=== PATIENT | female | born 1980 | race Caucasian/White ===

== ENCOUNTER 2016-10-27 08:57 | Emergency (ER) | payer MEDICARE ==
[~2016-10-27 08:57] MED LIST: ZYPR10TA9 PO; ZYPR15TA12 PO
[2016-10-27 09:36] VITALS: BP 123/93; PULSE 93; RESP 20; TEMP 97.5; O2SAT 99
[2016-10-27 10:45] LABS: AUTOMATED NEUTROPHIL # 10.1 TH/MM3 (1.8-7.7); BASOPHIL # 0.1 TH/MM3 (0-0.2); BASOPHIL % 0.4 % (0.0-2.0); EOSINOPHIL # 0.2 TH/MM3 (0-0.4); EOSINOPHIL % 1.4 % (0.0-4.0); HEMATOCRIT 41.5 % (35.0-46.0); HEMO FLAGS DIFF FINAL; LYMPH % 16.9 % (9.0-44.0); LYMPHOCYTE # 2.4 TH/MM3 (1.0-4.8); MEAN CELL VOLUME 90.2 FL (80.0-100.0); MEAN CORPUSCULAR HGB CONC 33.3 % (32.0-36.0); MONO % 8.7 % (0.0-8.0); NEUT % 72.6 % (16.0-70.0); PLATELET COUNT 359 TH/MM3 (150-450); RED CELL DISTRIBUTION WIDTH 13.4 % (11.6-17.2); WHITE BLOOD COUNT 13.9 TH/MM3 (4.0-11.0)
[2016-10-27 11:07] LABS: ALT (GPT) 22 U/L (10-53); ANION GAP 6 MEQ/L (5-15); AST (GOT) 16 U/L (15-37); BICARBONATE 28.3 MEQ/L (21.0-32.0); BLOOD UREA NITROGEN 24 MG/DL (7-18); CHLORIDE 108 MEQ/L (98-107); GLOMERULAR FILTRATION RATE 77 ML/MIN (>89); POTASSIUM 3.7 MEQ/L (3.5-5.1); SODIUM (NA) 142 MEQ/L (136-145)
[2016-10-27 11:08] LABS: ALKALINE PHOSPHATASE 54 U/L (45-117); TOTAL BILIRUBIN ADULT 0.8 MG/DL (0.2-1.0)
--- NOTE | 2016-10-27 11:09 | PD ---
HPI Chief Complaint: Psychiatric Symptoms Time Seen by Provider: 10:30 Travel History International Travel<30 days: No Contact w/Intl Traveler<30days: No Traveled to known affect area: No History of Present Illness HPI 36-year-old female presents the emergency department via police and EMS under the [place] act. Patient has history of schizophrenia and has been off her meds for quite some time. She was found on a random porch and the local neighborhood. Patient is obviously schizophrenic at this time. There is no obvious signs of trauma. Patient has no complaints of pain. She has no known drug allergies. PFSH Past Medical History Medical History: Unable to Obtain Autoimmune Disease: No Anxiety: No Depression: No Cancer: No Cardiovascular Problems: No Endocrine: No Genitourinary: No Immune Disorder: No Musculoskeletal: No Neurologic: No Psychiatric: Yes Reproductive: No Respiratory: No Schizophrenia: Yes ?: Unknown LMP: UNABLE TO OBTAIN : 3 Para: 1 : 1 Past Surgical History Surgical History: Unable to Obtain Section: Yes Gynecologic Surgery: Yes Social History Alcohol Use: No (UNABLE TO OBTAIN) Tobacco Use: Yes (UNABLE TO OBTAIN) Substance Use: No (UNABLE TO OBTAIN) Allergies-Medications (Allergen,Severity, Reaction): Coded Allergies: No Known Allergies (Verified , 10/27/16) Reported Meds & Prescriptions Reported Meds & Active Scripts Active Active Prescriptions or Reported Medications Unobtainable Review of Systems ROS Limitations: Psychotic Except as stated in HPI: all other systems reviewed are Neg General / Constitutional: No: Fever Eyes: No: Visual changes HENT: No: Headaches Cardiovascular: No: Chest Pain or Discomfort Respiratory: No: Shortness of Breath Gastrointestinal: No: Abdominal Pain Genitourinary: No: Dysuria Musculoskeletal: No: Pain Skin: No Rash Neurologic: No: Weakness Psychiatric: No: Depression Endocrine: No: Polydipsia Hematologic/Lymphatic: No: Easy Bruising Physical Exam Exam Limitations: Psychotic Narrative GENERAL: Patient appears in no obvious distress. She is speaking insensible sentences. SKIN: Warm and dry. Color. Normal turgor. No obvious signs of trauma. HEAD: Atraumatic. Normocephalic. EYES: Pupils equal and round. No scleral icterus. No injection or drainage. ENT: No nasal bleeding or discharge. Mucous membranes pink and moist. Pharynx is clear. NECK: Trachea midline. Supple CARDIOVASCULAR: Regular rate and rhythm. RESPIRATORY: No accessory muscle use. MUSCULOSKELETAL: Extremities without clubbing, cyanosis, or edema. No obvious deformities. NEUROLOGICAL: Awake and alert. No obvious cranial nerve deficits. Motor grossly within normal limits. Five out of 5 muscle strength in the arms and legs. Normal speech. PSYCHIATRIC: Patient appears psychotic, but is redirectable and cooperative at time of exam. Data Data Last Documented VS Vital Signs Date Time Temp Pulse Resp B/P Pulse Ox O2 Delivery O2 Flow Rate FiO2 10/27/16 09:36 97.5 93 20 123/93 99 Orders Complete Blood Count With Diff (10/27/16 10:12) Comprehensive Metabolic Panel (10/27/16 10:12) Urinalysis - C+S If Indicated (10/27/16 10:12) Ed Urine Pregnancytest Poc (10/27/16 10:12) Psych Screen (10/27/16 10:12) Drug Screen, Random Urine (10/27/16 10:12) Alcohol (Ethanol) (10/27/16 10:12) Labs Laboratory Tests Test 10/27/16 00:25 White Blood Count 13.9 TH/MM3 Red Blood Count 4.60 MIL/MM3 Hemoglobin 13.8 GM/DL Hematocrit 41.5 % Mean Corpuscular Volume 90.2 FL Mean Corpuscular Hemoglobin 30.0 PG Mean Corpuscular Hemoglobin 33.3 % Concent Red Cell Distribution Width 13.4 % Platelet Count 359 TH/MM3 Mean Platelet Volume 7.5 FL Neutrophils (%) (Auto) 72.6 % Lymphocytes (%) (Auto) 16.9 % Monocytes (%) (Auto) 8.7 % Eosinophils (%) (Auto) 1.4 % Basophils (%) (Auto) 0.4 % Neutrophils # (Auto) 10.1 TH/MM3 Lymphocytes # (Auto) 2.4 TH/MM3 Monocytes # (Auto) 1.2 TH/MM3 Eosinophils # (Auto) 0.2 TH/MM3 Basophils # (Auto) 0.1 TH/MM3 CBC Comment DIFF FINAL Differential Comment MDM Medical Decision Making Medical Screen Exam Complete: Yes Emergency Medical Condition: Yes Differential Diagnosis [place] act. Mood disorder. Psychosis. Narrative Course Patient appears medically stable at time of exam. Ordered per psychiatric protocol including CBC, CMP, urinalysis, urine drug screen, serum alcohol level, and urine test. Patient is medically cleared for psychiatric evaluation. Diagnosis Primary Impression: Medical clearance for psychiatric admission Additional Impression: Psychosis Qualified Code: F29 - Psychosis, unspecified psychosis type Scripts Unable to Obtain Active Prescriptions or Reported Meds Condition: Jonah Aranda Oct 27, 2016 11:09
[2016-10-27 13:44] VITALS: BP 119/96; PULSE 81; RESP 18; TEMP 98.1; O2SAT 97
[2016-10-27 18:21] VITALS: BP 115/61; PULSE 71; RESP 18; O2SAT 97
[2016-10-27 22:00] VITALS: RESP 18
[2016-10-28 02:00] VITALS: RESP 18
[2016-10-28 06:00] VITALS: BP 141/85; PULSE 107; RESP 18; TEMP 97.9; O2SAT 97
== END 2016-10-28 09:58 ==
LOC: NEPD 08:57 → NEPJ 10-28 09:58
DX: F29 Unspecified psychosis not due to a substance or known physiological condition (principal); F20.9 Schizophrenia, unspecified
CPT/HCPCS: 80053; 80307; 85025; 99284

== ENCOUNTER 2016-12-24 17:30 | Inpatient (IN) | payer MEDICARE, OTHER ==
[~2016-12-24] VITALS: Ht 157.5 cm; Wt 58.7 kg
[2016-12-24 17:34] VITALS: BP 124/72; PULSE 68; RESP 20; TEMP 98.1; O2SAT 99
[2016-12-24 18:41] LABS: AUTOMATED NEUTROPHIL # 4.5 TH/MM3 (1.8-7.7); BASOPHIL # 0.1 TH/MM3 (0-0.2); BASOPHIL % 0.8 % (0.0-2.0); EOSINOPHIL # 0.3 TH/MM3 (0-0.4); EOSINOPHIL % 4.2 % (0.0-4.0); HEMATOCRIT 37.2 % (35.0-46.0); HEMO FLAGS DIFF FINAL; LYMPH % 29.6 % (9.0-44.0); LYMPHOCYTE # 2.4 TH/MM3 (1.0-4.8); MEAN CELL VOLUME 93.3 FL (80.0-100.0); MEAN CORPUSCULAR HEMOGLOBIN 32.7 PG (27.0-34.0); MEAN CORPUSCULAR HGB CONC 35.1 % (32.0-36.0); MONO % 10.2 % (0.0-8.0); NEUT % 55.2 % (16.0-70.0); PLATELET COUNT 297 TH/MM3 (150-450); RED BLOOD COUNT 3.99 MIL/MM3 (4.00-5.30); RED CELL DISTRIBUTION WIDTH 14.2 % (11.6-17.2); WHITE BLOOD COUNT 8.2 TH/MM3 (4.0-11.0)
[2016-12-24 18:56] LABS: ALT (GPT) 14 U/L (10-53); ANION GAP 6 MEQ/L (5-15); AST (GOT) 8 U/L (15-37); BICARBONATE 25.6 MEQ/L (21.0-32.0); BLOOD UREA NITROGEN 15 MG/DL (7-18); CHLORIDE 107 MEQ/L (98-107); GLOMERULAR FILTRATION RATE 81 ML/MIN (>89); POTASSIUM 3.8 MEQ/L (3.5-5.1); SODIUM (NA) 139 MEQ/L (136-145)
[2016-12-24 18:59] LABS: ACETAMINOPHEN LESS THAN 2.0 MCG/ML (10.0-30.0); ALKALINE PHOSPHATASE 44 U/L (45-117); TOTAL BILIRUBIN ADULT 0.3 MG/DL (0.2-1.0)
--- NOTE | 2016-12-24 19:00 | PD ---
HPI Chief Complaint: Psychiatric Symptoms Time Seen by Provider: 18:57 Travel History International Travel<30 days: No Contact w/Intl Traveler<30days: No Traveled to known affect area: No History of Present Illness HPI 36-year-old female that presents to the ED for evaluation of psychiatric illness. Patient was [place] by law enforcement secondary to delusions and hallucinations. Patient denies any of these. No suicidal ideation. History is limited as patient would not really collaborate the story. Per patient she is here to get sleeping pills to help her sleep. She has no medical complaints. She says that she takes no medications. PFSH Past Medical History Autoimmune Disease: No Anxiety: No Depression: No Cancer: No Cardiovascular Problems: No Endocrine: No Genitourinary: No Immune Disorder: No Musculoskeletal: No Neurologic: No Psychiatric: Yes Reproductive: No Respiratory: No Schizophrenia: Yes ?: Not : 3 Para: 1 : 1 Past Surgical History Section: Yes Gynecologic Surgery: Yes Social History Alcohol Use: No (UNABLE TO OBTAIN) Tobacco Use: Yes (UNABLE TO OBTAIN) Substance Use: No Allergies-Medications (Allergen,Severity, Reaction): Coded Allergies: No Known Allergies (Verified , 10/27/16) Reported Meds & Prescriptions Reported Meds & Active Scripts Active Active Prescriptions or Reported Medications Unobtainable Review of Systems ROS Limitations: Poor Historian Except as stated in HPI: all other systems reviewed are Neg Physical Exam Exam Limitations: Poor Historian Narrative GENERAL: SKIN: Warm and dry. HEAD: Atraumatic. Normocephalic. EYES: Pupils equal and round. No scleral icterus. No injection or drainage. ENT: No nasal bleeding or discharge. Mucous membranes pink and moist. NECK: Trachea midline. No JVD. CARDIOVASCULAR: Regular rate and rhythm. RESPIRATORY: No accessory muscle use. Clear to auscultation. Breath sounds equal bilaterally. GASTROINTESTINAL: Abdomen soft, non-tender, nondistended. Hepatic and splenic margins not palpable. MUSCULOSKELETAL: Extremities without clubbing, cyanosis, or edema. No obvious deformities. Full range of motion of the upper and lower extremities bilaterally. 2+ pulses bilaterally. NEUROLOGICAL: Awake and alert. No obvious cranial nerve deficits. Motor grossly within normal limits. Five out of 5 muscle strength in the arms and legs. Normal speech. PSYCHIATRIC: Appropriate mood and affect; insight and judgment normal. Data Data Last Documented VS Vital Signs Date Time Temp Pulse Resp B/P Pulse Ox O2 Delivery O2 Flow Rate FiO2 12/24/16 17:34 98.1 68 20 124/72 99 Orders Complete Blood Count With Diff (12/24/16 17:41) Comprehensive Metabolic Panel (12/24/16 17:41) Psych Screen (12/24/16 17:41) Drug Screen, Random Urine (12/24/16 17:41) Alcohol (Ethanol) (12/24/16 17:41) Salicylates (Aspirin) (12/24/16 17:41) Tylenol (Acetaminophen) (12/24/16 17:41) Labs Laboratory Tests Test 12/24/16 12/24/16 17:50 17:51 White Blood Count 8.2 TH/MM3 Red Blood Count 3.99 MIL/MM3 Hemoglobin 13.0 GM/DL Hematocrit 37.2 % Mean Corpuscular Volume 93.3 FL Mean Corpuscular Hemoglobin 32.7 PG Mean Corpuscular Hemoglobin 35.1 % Concent Red Cell Distribution Width 14.2 % Platelet Count 297 TH/MM3 Mean Platelet Volume 7.3 FL Neutrophils (%) (Auto) 55.2 % Lymphocytes (%) (Auto) 29.6 % Monocytes (%) (Auto) 10.2 % Eosinophils (%) (Auto) 4.2 % Basophils (%) (Auto) 0.8 % Neutrophils # (Auto) 4.5 TH/MM3 Lymphocytes # (Auto) 2.4 TH/MM3 Monocytes # (Auto) 0.8 TH/MM3 Eosinophils # (Auto) 0.3 TH/MM3 Basophils # (Auto) 0.1 TH/MM3 CBC Comment DIFF FINAL Differential Comment Salicylates Level 5.5 MG/DL Urine Opiates Screen NEG Urine Barbiturates Screen NEG Urine Amphetamines Screen NEG Urine Benzodiazepines Screen NEG Urine Cocaine Screen NEG Urine Cannabinoids Screen NEG MDM Medical Decision Making Medical Screen Exam Complete: Yes Emergency Medical Condition: Yes Medical Record Reviewed: Yes Interpretation(s) CBC Diagram 12/24/16 17:50 drug screen negative Differential Diagnosis Depression versus suicidal ideation versus anxiety versus adjustment disorder versus mood disorder versus bipolar disorder versus schizophrenia versus paranoid disorder versus psychosis versus substance abuse versus alcohol abuse versus alcohol induced psychosis versus homicidality addition versus cutting versus personality disorder Narrative Course 36-year-old female that presents to the ED for evaluation of psych. Patient was properly examined and was found to have signs and symptoms consistent with significantof acute medical distress. Patient does have a known history of schizophrenia to disorder. She has been here multiple times for same. She denies any medical issues. History is limited. I suspect that she has low input into her illness. Labs were drawn. Patient will be medically cleared. Okay to be seen by psych. Mental health screening was discussed with the patient. Diagnosis Primary Impression: Schizoaffective disorder Qualified Code: F25.9 - Schizoaffective disorder, unspecified type Scripts Unable to Obtain Active Prescriptions or Reported Meds Jaret Asher Dec 24, 2016 19:00
[2016-12-24 19:01] VITALS: BP 107/71; PULSE 78; RESP 18; O2SAT 97
[2016-12-24 19:06] LABS: ALCOHOL LESS THAN 3 MG/DL (0-5)
[2016-12-24] MEDS ORDERED: MAGNESIUM HYDROXIDE SUSP 30 ML CUP PO PRN (19:45)
[2016-12-24] MEDS ORDERED: LORazepam 1 MG TAB PO PRN (19:45)
[2016-12-24] MEDS ORDERED: LORazepam 0.5 MG TAB PO PRN (19:45)
[2016-12-24] MEDS ORDERED: LORazepam 2 MG/ML VIAL IM PRN ×2 (19:45)
[2016-12-24] MEDS ORDERED: ALUMINUM/MAGNESIUM/SIMETH 30 ML CUP PO PRN (19:45)
[2016-12-24] MEDS: NICOTINE 21 MG/24 HR PATCH T-DERMAL SCH (20:00)
[2016-12-24 22:02] VITALS: RESP 18
[2016-12-25 06:04] VITALS: BP 96/56; PULSE 61; RESP 18; TEMP 97.3
[2016-12-25] MEDS: NICOTINE 21 MG/24 HR PATCH T-DERMAL SCH (09:00)
[2016-12-25 11:29] LABS: ANION GAP 7 MEQ/L (5-15); BLOOD UREA NITROGEN 21 MG/DL (7-18); CHLORIDE 107 MEQ/L (98-107); GLOMERULAR FILTRATION RATE 88 ML/MIN (>89); POTASSIUM 3.7 MEQ/L (3.5-5.1); SODIUM (NA) 139 MEQ/L (136-145)
[2016-12-25 11:32] LABS: HDL CHOLESTEROL 57.4 MG/DL (40.0-60.0); LDL CHOLESTEROL 76 MG/DL (0-99)
--- NOTE | 2016-12-25 16:31 | PD.PSY.CON ---
Provisional Diagnosis Admission Date Dec 24, 2016 at 19:42 History of Present Illness Service Psychiatry Consult Requested By Dr. Yin Reason for Consult Second opinion [facility] Primary Care Physician No Primary Care Physician HPI Patient is a 36 her white female well-known post multiple prior hospitalization hasn't been admitted to Dr. Yin service the [place] . Dr. Yin has signed first opinion petition supporting [place] . Patient seen by me on the unit with nurse Mary. Patient is vigilant somewhat paranoid with intense eye contact rapid pressured speech, neurology noncompliance medication. I agree with Dr. Yin. Patient meets criteria for involuntary psychiatric hospitalization under the [place] act. Thus I will cosign second opinion petition supporting [employer] Past Family Social History Coded Allergies: No Known Allergies (Verified , 10/27/16) Unable to Obtain Active Prescriptions or Reported Meds Current Medications Medications (Trade) Dose Ordered Sig/Emmy Route Start Time Stop Time Status Last Admin (Ativan) 1 mg Q6H PRN PO 12/24/16 19:45 (Ativan Inj) 1 mg Q6H PRN IM 12/24/16 19:45 (Tylenol) 650 mg Q4H PRN PO 12/24/16 19:45 (Milk Of Magnesia Liq) 30 ml DAILY PRN PO 12/24/16 19:45 (Mag-Al Plus Susp Liq) 30 ml Q6H PRN PO 12/24/16 19:45 (Habitrol 21 Mg Patch.24 Hr) 1 patch DAILY T-DERMAL 12/24/16 20:00 12/25/16 09:00 (ZyPREXA) 5 mg Q12HR PO 12/25/16 21:00 (Benadryl) 50 mg HS PRN PO 12/25/16 21:00 Physical Exam Vital Signs Vital Signs Date Time Temp Pulse Resp B/P Pulse Ox O2 Delivery O2 Flow Rate FiO2 12/25/16 06:04 97.3 61 18 96/56 12/24/16 19:01 97 Room Air Mental Status Examination Alert confused than white female guarded with intense eye contact Appearance Somewhat disheveled Speech: Pressured, Rapid Memory: Unremarkable Thought Process: Loose Association Thought Content: Paranoid Language Poor Fund of Knowledge Poor Hallucination Type: Auditory (vague) Attention and Concentration: Other (poor) Suicidal Ideation: No (denies) Previous Suicide Attempts: No Homicidal Ideation: No (denies) Previous Homicide Attempts: No Insight: Poor Judgment: Poor Affect: Other (slight increase range and intensity) Mood: Euthymic, Manic (mildly) Motor Activity: Normal gait Assessment & Plan Problem List: (1) Schizoaffective disorder ICD Code: F25.9 Assessment & Plan Estimated LOS: days Problem Qualifiers (1) Schizoaffective disorder: Qualified Code: F25.0 - Schizoaffective disorder, bipolar type Cornel Tsang MD Dec 25, 2016 16:31
[2016-12-25 17:15] LABS: HEMOGLOBIN A1b 0.8 %; HEMOGLOBIN F 0.8 %; HEMOGLOBIN LA1C 1.8 %; HEMOGLOBIN P3 3.6 %
[2016-12-25 18:05] VITALS: BP 99/66; PULSE 74; RESP 18; TEMP 98.4; O2SAT 98
[2016-12-25] MEDS: OLANZapine 5 MG TAB PO SCH (20:24)
--- NOTE | 2016-12-25 21:03 | HHI.HP ---
Provisional Diagnosis Admission Date Dec 24, 2016 at 19:42 [place] I. Schizoaffective disorder bipolar type [place] II. Deferred [place] III. Denies [place] IV. Chronic mental illness, limited social support, history of noncompliance with her medications [place] V. 35 Certification of Person's Competence To Provide Express and Informed Consent I have personally examined Hnanah Dubose , a person being served at [facility] on, Dec 25, 2016 20:55. Express and informed consent means consent voluntarily given in writing, by a competent person, after sufficient explanation and disclosure of the subject matter involved to enable the person to make a knowing and willful decision without any element of force, fraud, deceit, duress, or other form of constraint or coercion. This person is 18 years of age or older, is not now known to be incompetent to consent to treatment with a guardian advocate, and does not have a health care surrogate or proxy currently making medical treatment decisions. I have found this person to be one of the following: [] Competent to provide express and informed consent, as defined above, for voluntary admission to this facility and is competent to provide express and informed consent for treatment. He/she has the consistent capacity to make well reasoned, willful, and knowing decisions concerning his or her medical or mental health treatment. The person fully and consistently understands the purpose of the admission for examination/placement and is fully capable of personally exercising all rights assured [place] [] Incompetent to provide express and informed consent to voluntary admission, and this is incompetent to provide express and informed consent to treatment. The person must be transferred to involuntary status and a petition for a guardian advocate filed with the Circuit Court. [x] Refusing to provide express and informed consent to voluntary admission but is competent to provide express and informed consent for treatment. The person must be discharged or transferred to involuntary status. Form shall be completed within 24 hours of a person's arrival at the receiving facility and filed in the clinical record of each person: 1. Admitted on a voluntary basis 2. Permitted to provide express and informed consent to his/her own treatment 3. Allowed to transfer from involuntary to voluntary status 4. Prior to permitting a person to consent to his or her own treatment after having been previously found incompetent to consent to treatment. History of Present Illness Capacity: Has Capacity HPI Patient is a 36-year-old woman, , has 3 children in foster care, domicile with mother since August of this year in [place], unemployed on SSI, past psychiatric history of schizoaffective disorder, multiple psychiatric hospitalizations (previous [facility] admissions), no previous suicide attempts or self-injurious behavior, who was brought in under export a for delusions or hallucinations and is now admitted to the inpatient psychiatric unit for further evaluation and management. Patient was found walking on hospital unit but was able to engage in interview. Patient states that she was which the discharge from [facility] after 1 month inpatient hospitalization. She states that since discharge she has been having difficulty purchasing her medications due to waiting for her SSI check. Patient reports that she had tried to go to [facility] act that from there she was sent here to the hospital. She reports that since her last discharge she had not been on medication, has not been sleeping for the past 3 days, had any having increased activities, reports her mood as being regular, concentration has been okay, denies any depressive symptoms. Patient states that she would just like to return back to taking her medications. She denies any perceptual disturbances or delusions at this time. Patient noted to be minimizing some symptoms, noted to bes disorganized at times during interview. Patient initially agreed to have team contact her mother for collateral information been refuses but then agreed again Past psychiatric history: Previous psychiatric diagnoses of schizoaffective disorder, multiple previous psychiatric hospitalizations, with a previous [facility] admission, last hospitalization was [facility] for a one-month duration. Patient reports previous medication trials including Depakote, Invega , Zyprexa, Wellbutrin, Geodon, Klonopin. Patient denies any previous suicide attempts or self-injurious behavior. Patient denies any history of abuse. Family psychiatric history: Denies mental illness in the family, denies any suicides Substance use history: Tobacco(+), denies alcohol or any drug use. Past medical history denies Allergies NKDA Legal history denies Social history , has 3 children in foster care, currently living mother since August but prior to that was living in [place]. Patient play with [employer] benefits. Highest education is GED. Review of Systems Except as stated in HPI: all other systems reviewed are Neg Past Psych History Psychological trauma history Denies history of use Violence risk - others (6 mos) Moderate Violence risk - self (6 mos) Low Substance Abuse History Drugs/Alcohol past 12 months Denies Past Family Social History Coded Allergies: No Known Allergies (Verified , 10/27/16) Unable to Obtain Active Prescriptions or Reported Meds Current Medications Medications (Trade) Dose Ordered Sig/Emmy Route Start Time Stop Time Status Last Admin (Ativan) 1 mg Q6H PRN PO 12/24/16 19:45 (Ativan Inj) 1 mg Q6H PRN IM 12/24/16 19:45 (Tylenol) 650 mg Q4H PRN PO 12/24/16 19:45 (Milk Of Magnesia Liq) 30 ml DAILY PRN PO 12/24/16 19:45 (Mag-Al Plus Susp Liq) 30 ml Q6H PRN PO 12/24/16 19:45 (Habitrol 21 Mg Patch.24 Hr) 1 patch DAILY T-DERMAL 12/24/16 20:00 12/25/16 09:00 (ZyPREXA) 5 mg Q12HR PO 12/25/16 21:00 12/25/16 20:24 (Benadryl) 50 mg HS PRN PO 12/25/16 21:00 Family History Denies Social History , living with mother, has 3 children in foster care, unemployed on SSI, highest education is GED Patient's Strengths (min. 2) Verbal and communicative Physical Exam Upon my examination patient noted not to be in distress, no gross abnormalities noted, no gross motor deficits noted, no psychomotor retardation. Vital Signs Vital Signs Date Time Temp Pulse Resp B/P Pulse Ox O2 Delivery O2 Flow Rate FiO2 12/25/16 18:05 98.4 74 18 99/66 98 12/24/16 19:01 Room Air Lab Results Labs reviewed. Laboratory Tests Test 12/24/16 12/25/16 17:50 09:30 Red Blood Count 3.99 MIL/MM3 (4.00-5.30) Monocytes (%) (Auto) 10.2 % (0.0-8.0) Eosinophils (%) (Auto) 4.2 % (0.0-4.0) Estimat Glomerular Filtration 81 ML/MIN (>89) 88 ML/MIN (>89) Rate Aspartate Amino Transf 8 U/L (15-37) (AST/SGOT) Alkaline Phosphatase 44 U/L (45-117) Acetaminophen Level LESS THAN 2.0 MCG/ML (10.0-30.0) Blood Urea Nitrogen 21 MG/DL (7-18) Calcium Level 8.4 MG/DL (8.5-10.1) Mental Status Examination Appearance Patient appears stated age, found casual clothing, hair shaven, calm and cooperative interview, fair grooming and hygiene. Fair eye contact, speech rapid rate, normal tone, mood: Fine, affect constricted thought process disorganized at times, thought content denies SI, HI, perceptual disturbances but noted to have some paranoia. Poor insight, fair impulse control, poor judgment. Speech: Pressured, Rapid Orientation: x3 Memory: Unremarkable Thought Process: Loose Association Thought Content: Paranoid Language Fluent and spontaneous Fund of Knowledge Average Hallucination Type: Auditory Attention and Concentration: Easily Distracted, Other (poor) Suicidal Ideation: No (denies) Previous Suicide Attempts: No Homicidal Ideation: No (denies) Previous Homicide Attempts: No Insight: Poor Judgment: Poor Affect: Other Affect if Inappropriate: Other (restricted) Mood: Euthymic, Manic (mildly) Motor Activity: Normal gait Assessment & Plan Problem List: (1) Schizoaffective disorder ICD Code: F25.9 Assessment & Plan Petition for involuntary admission started. Request for second opinion. Patient at this time noted to be disorganized, paranoid, noted to have pressured speech in the context of recent noncompliance with medications and recent discharge from a psychiatric admission. As time requires inpatient psychiatric stabilization. Patient will be started on olanzapine 5 mg by mouth twice a day with upper titration as needed for psychosis. Medical recommendations as per primary medical team. Monitor her medication response and adverse drug reactions. Discharge planning in progress. Discharge Planning In progress Problem Qualifiers (1) Schizoaffective disorder: Qualified Code: F25.0 - Schizoaffective disorder, bipolar type Fito Yin MD Dec 25, 2016 21:02
[2016-12-26 05:49] VITALS: BP 105/52; PULSE 56; RESP 16; TEMP 97.2; O2SAT 97
[2016-12-26] MEDS: OLANZapine 5 MG TAB PO SCH (09:00)
[2016-12-26] MEDS: NICOTINE 21 MG/24 HR PATCH T-DERMAL SCH (09:00)
--- NOTE | 2016-12-26 17:49 | HHI.PYPN ---
Subjective Remarks Patient seen for follow-up, chart reviewed. Hospital bed under the covers and was superficially cooperative with interview. Patient states he had been feeling "good" he states she had participated in activities. Patient states that she is not having auditory hallucinations that she was noted to be internally preoccupied. Patient states being "okay", and noted that patient was refusing to continue interview as patient kept repeating "I'm sorry having a difficult time hearing you" despite database report writer repeating questions with elevated volume. Review of Systems Except as stated in HPI: all other systems reviewed are Neg Objective Alert: Yes [place]: Person Mood: Oppositional Affect: Restricted Memory Intact: Comment (impaired) Hallucinations: Auditory (denies was noted to be internally preoccupied) Delusions: No Delusion Type: Paranoid Suicidal: Ideation (denies) Homicidal: Ideation (denies denies) Insight/Judgment Poor insight, fair impulse control, poor judgment Labs Labs reviewed Laboratory Tests Test 12/24/16 12/25/16 17:50 09:30 Red Blood Count 3.99 MIL/MM3 (4.00-5.30) Monocytes (%) (Auto) 10.2 % (0.0-8.0) Eosinophils (%) (Auto) 4.2 % (0.0-4.0) Estimat Glomerular Filtration 81 ML/MIN (>89) 88 ML/MIN (>89) Rate Aspartate Amino Transf 8 U/L (15-37) (AST/SGOT) Alkaline Phosphatase 44 U/L (45-117) Acetaminophen Level LESS THAN 2.0 MCG/ML (10.0-30.0) Blood Urea Nitrogen 21 MG/DL (7-18) Calcium Level 8.4 MG/DL (8.5-10.1) Vitals/IOs Vital Signs Date Time Temp Pulse Resp B/P Pulse Ox O2 Delivery O2 Flow Rate FiO2 12/26/16 05:49 97.2 56 16 105/52 97 12/24/16 19:01 Room Air Assessment & Plan Problem List: (1) Schizoaffective disorder ICD Code: F25.9 Assessment & Plan Patient continues to be acutely psychotic, internally preoccupied and paranoid. We will increase olanzapine to 5 mg a.m. and 10 mg at bedtime for psychosis. Monitor medication response and adverse drug reactions. Discharge planning in progress Justification for Cont. Inpt. Patient at risk for further decompensation if at lower level of care. Discharge Planning In progress Problem Qualifiers (1) Schizoaffective disorder: Qualified Code: F25.0 - Schizoaffective disorder, bipolar type Fito Yin MD Dec 26, 2016 17:49
[2016-12-26] MEDS: OLANZapine 10 MG TAB PO SCH (20:19)
[2016-12-27] MEDS: NICOTINE 21 MG/24 HR PATCH T-DERMAL SCH (07:59)
[2016-12-27] MEDS: OLANZapine 5 MG TAB PO SCH (07:59)
--- NOTE | 2016-12-27 16:38 | HHI.PYPN ---
Subjective Remarks Patient was seen and case discussed with nursing. Patient is irritable and guarded. When he reviewed her history she would not admit to a history of psychosis. She then says "I put the schizoaffective on you, now you have it" and she leaves the interview early. Compliant with medications per nursing. Remains seclusive, sleeping well. Hygiene has improved. Denied suicidal ideation intent or plan Objective Alert: Yes [place]: Person Mood: Oppositional Affect: Restricted Memory Intact: Comment (impaired) Hallucinations: Auditory (denies was noted to be internally preoccupied) Delusions: No Delusion Type: Paranoid Suicidal: Ideation (denies) Homicidal: Ideation (denies denies) Insight/Judgment Poor Vitals/IOs Vital Signs Date Time Temp Pulse Resp B/P Pulse Ox O2 Delivery O2 Flow Rate FiO2 12/26/16 05:49 97.2 56 16 105/52 97 12/24/16 19:01 Room Air Assessment & Plan Problem List: (1) Schizoaffective disorder ICD Code: F25.9 Assessment & Plan Continue current treatment plan Justification for Cont. Inpt. Patient would decompensate in a less restrictive setting Problem Qualifiers (1) Schizoaffective disorder: Qualified Code: F25.0 - Schizoaffective disorder, bipolar type David Degroot DO Dec 27, 2016 16:38
[2016-12-27 18:28] VITALS: BP 103/60; PULSE 81; RESP 17; TEMP 97.7; O2SAT 98
[2016-12-27] MEDS: OLANZapine 10 MG TAB PO SCH (21:00)
[2016-12-28] MEDS: NICOTINE 21 MG/24 HR PATCH T-DERMAL SCH (09:00)
[2016-12-28] MEDS: OLANZapine 5 MG TAB PO SCH (09:00)
[2016-12-28 17:00] VITALS: BP 91/52; PULSE 66; RESP 18; TEMP 98.1; O2SAT 96
--- NOTE | 2016-12-28 18:36 | HHI.PYPN ---
Subjective Remarks Patient was seen and case discussed with nursing. Patient is less irritable and perseverative compared to yesterday. She continues to ask about discharge however. Is asking about switching to voluntary. Her nursing she's been seclusive all day until about 4 PM. Continues to deny psychotic symptoms. Poor insight into admission. Mood is "good." Objective Alert: Yes [place]: Person Mood: Calm Affect: Blunted Memory Intact: Comment (impaired) Hallucinations: Auditory (denies was noted to be internally preoccupied) Delusions: No Delusion Type: Paranoid Suicidal: Ideation (denies) Homicidal: Ideation (denies denies) Insight/Judgment Poor Vitals/IOs Vital Signs Date Time Temp Pulse Resp B/P (MAP) Pulse Ox O2 Delivery O2 Flow Rate FiO2 12/28/16 17:00 98.1 66 18 91/52 (65) 96 12/24/16 19:01 Room Air Assessment & Plan Problem List: (1) Schizoaffective disorder ICD Codes: F25.9 - Schizoaffective disorder, unspecified Status: Acute Assessment & Plan Continue current treatment plan Justification for Cont. Inpt. Patient would decompensate in a less restrictive setting Problem Qualifiers (1) Schizoaffective disorder: David Degroot DO Dec 28, 2016 18:36
[2016-12-28] MEDS: OLANZapine 10 MG TAB PO SCH (20:08)
[2016-12-29] MEDS: OLANZapine 5 MG TAB PO SCH (08:35)
[2016-12-29] MEDS: NICOTINE 21 MG/24 HR PATCH T-DERMAL SCH (08:37)
[2016-12-29 18:11] VITALS: BP 109/70; PULSE 99; RESP 16; TEMP 97; O2SAT 97
--- NOTE | 2016-12-29 18:29 | HHI.PYPN ---
Subjective Remarks Patient seen for follow-up, chart reviewed. After discussion with nursing staff , patient recently spoke with boyfriend, has been mostly isolative on the unit, minimally interactive with staff, not bathing but medication compliant. Patient states that she has been feeling "good" and recently spoken with her boyfriend and feeling concerned that she has a pending court date in February for unspecfied charges which she did not want to elaborate. She also mentions having been visited by her mother yesterday. Patient at this time appears to minimize symptoms and denies SI, HI, AVH or delusions at time of interview. Review of Systems Except as stated in HPI: all other systems reviewed are Neg Objective Alert: Yes [place]: Person Mood: Calm Affect: Blunted Memory Intact: Comment (impaired) Hallucinations: Auditory (denies but noted by staff to be responding to internal stimuli) Delusions: No Delusion Type: Paranoid Suicidal: Ideation (denies) Homicidal: Ideation (denies denies) Insight/Judgment limited insight, fair impulse control and judgement Vitals/IOs Vital Signs Date Time Temp Pulse Resp B/P (MAP) Pulse Ox O2 Delivery O2 Flow Rate FiO2 12/29/16 18:11 97.0 99 16 109/70 (83) 97 Assessment & Plan Problem List: (1) Schizoaffective disorder ICD Codes: F25.9 - Schizoaffective disorder, unspecified Status: Acute Assessment & Plan Patient at this time continues to be noted to be internally preoccupied, not maintaiing hygiene, but slightly less disorganized. Increase olanzapine to 10mg PO daily for psychosis. Discharge planning in progress. Justification for Cont. Inpt. At risk for further decompensation if at lower level of care Problem Qualifiers (1) Schizoaffective disorder: Fito Yin MD Dec 29, 2016 18:29
[2016-12-29] MEDS: OLANZapine 10 MG TAB PO SCH (20:23)
[2016-12-30] MEDS: OLANZapine 10 MG TAB PO SCH ×2 (09:00→20:48)
[2016-12-30] MEDS: NICOTINE 21 MG/24 HR PATCH T-DERMAL SCH (09:00)
--- NOTE | 2016-12-30 13:38 | HHI.PYPN ---
Subjective Remarks Patient seen for follow-up for chart review. Patient found lying in hospital bed sleep was able to wake up for interview but then became irritable and refused to continue. She initially stated that she had been feeling "ok, I'm tired" and reports having not eaten breakfast this morning but was able to get of the lunch she went back to bed. Crop Supervisor asked that she normally is a late riser which she said no and began to become more irritable throughout the interview. When asked what her mood is patient states "I don't have a mood". Patient states that she does speak to her boyfriend yesterday and when asked how she felt as a speak with him she said good. Patient laid down and refused to continue interview. Review of Systems Except as stated in HPI: all other systems reviewed are Neg Objective Alert: Yes [place]: Person Mood: Calm, Other (okay) Affect: Other (irritable) Memory Intact: Comment (impaired) Hallucinations: Other (denies) Delusions: Yes Delusion Type: Paranoid Suicidal: Ideation (denies) Homicidal: Ideation (denies denies) Insight/Judgment Poor insight, impulse control and judgment Vitals/IOs Vital Signs Date Time Temp Pulse Resp B/P (MAP) Pulse Ox O2 Delivery O2 Flow Rate FiO2 12/29/16 18:11 97.0 99 16 109/70 (83) 97 Assessment & Plan Problem List: (1) Schizoaffective disorder ICD Codes: F25.9 - Schizoaffective disorder, unspecified Status: Acute Assessment & Plan Patient at this time noted to be irritable, refused to engage in interview today. Patient minimally interactive with staff, isolative, poor hygiene. Continue current treatment for now possible upward titration if patient does not continue to improve. Continue to encourage improvement a personal hygiene, continue to encourage participation in groups and activities while on the unit. Discharge planning in progress Justification for Cont. Inpt. Patient at risk for further decompensation if at a lower level of care Discharge Planning In progress Problem Qualifiers (1) Schizoaffective disorder: Fito Yin MD Dec 30, 2016 13:38
[2016-12-31] MEDS: OLANZapine 10 MG TAB PO SCH ×2 (09:00→21:09)
[2016-12-31] MEDS: NICOTINE 21 MG/24 HR PATCH T-DERMAL SCH (09:52)
--- NOTE | 2016-12-31 14:22 | HHI.PYPN ---
Subjective Remarks Patient seen for follow, chart review. As discussion with nursing staff patient refuses vitals this morning and denies any breakfast. Patient found lying in hospital bed but able to wake up to interact with interview. Patient noted to have a restricted affect continues to be guarded but able to engage in interview today. Patient states that she has no mood and denies any perceptual disturbances. Patient states that when she is discharged to the hospital she plans to go back to [place] to be with her boyfriend. Patient encouraged to be able to participate in groups and activities on the unit which she states she will try. Patient noted to be very concrete in her answers and did not elaborate. Patient also states that she has spoken to her mother recently which she reports went well. Review of Systems Except as stated in HPI: all other systems reviewed are Neg Objective Alert: Yes [place]: Person Mood: Calm, Other (okay) Affect: Other (irritable) Memory Intact: Comment (impaired) Hallucinations: Other (denies) Delusions: Yes Delusion Type: Paranoid Suicidal: Ideation (denies) Homicidal: Ideation (denies denies) Insight/Judgment Poor insight, fair impulse control, poor judgment Vitals/IOs Vital Signs Date Time Temp Pulse Resp B/P (MAP) Pulse Ox O2 Delivery O2 Flow Rate FiO2 12/29/16 18:11 97.0 99 16 109/70 (83) 97 Assessment & Plan Problem List: (1) Schizoaffective disorder ICD Codes: F25.9 - Schizoaffective disorder, unspecified Status: Acute Assessment & Plan Patient at this time continues to be noted to be guarded, denies any perceptual disturbances at times appears to be internally preoccupied. Patient minimally interactive with staff noted to be mostly isolative. We'll continue current treatment regimen for now with possible upward titration. Continue to encourage patient to maintain personal hygiene and participate in groups and activities while on the unit. Collateral pending from mother. Discharge planning in progress. Labs ordered for tomorrow a.m. Justification for Cont. Inpt. Patient at risk for further decompensation if at a lower level of care Problem Qualifiers (1) Schizoaffective disorder: Fito Yin MD Dec 31, 2016 14:22
[2016-12-31 19:54] VITALS: BP 107/61; PULSE 76; RESP 18; TEMP 97.5; O2SAT 98
[2017-01-01] MEDS: OLANZapine 10 MG TAB PO SCH ×2 (09:52→20:42)
[2017-01-01] MEDS: NICOTINE 21 MG/24 HR PATCH T-DERMAL SCH (09:55)
--- NOTE | 2017-01-01 16:56 | HHI.PYPN ---
Subjective Remarks Patient seen for follow-up, chart reviewed. Patient found walking in the hallway of the units stating that she is taking her medications and feels much better. Patient states that she had been in bed mostly for the first couple days because she did not sleep for the past 3 days prior to her hospitalization and was trying to catch up. Patient states that she is interested in is more awake and able to interact and participate on the unit. Eyes any perceptual disturbances. Patient requests discharge patient was ago to return to be with her boyfriend. Review of Systems Except as stated in HPI: all other systems reviewed are Neg Objective Alert: Yes [place]: Person, Place Mood: Calm, Other (okay) Affect: Other (constricted) Memory Intact: Comment (impaired) Hallucinations: Other (denies) Delusions: Yes Delusion Type: Paranoid Suicidal: Ideation (denies) Homicidal: Ideation (denies denies) Insight/Judgment Limited tach, fair impulse control and judgment Vitals/IOs Vital Signs Date Time Temp Pulse Resp B/P (MAP) Pulse Ox O2 Delivery O2 Flow Rate FiO2 12/31/16 19:54 97.5 76 18 107/61 (76) 98 Assessment & Plan Problem List: (1) Schizoaffective disorder ICD Codes: F25.9 - Schizoaffective disorder, unspecified Status: Acute Assessment & Plan Patient this time noted to be more organized in thought process, noted to be more engaging in interview today. Patient has been compliant with medications. Continue current treatment, as her medication response adverse drug reactions. Discharge planning in progress Justification for Cont. Inpt. Patient at risk for further decompensation if at a lower level of care Problem Qualifiers (1) Schizoaffective disorder: Fito Yin MD Jan 01, 2017 16:56
[2017-01-02] MEDS: OLANZapine 10 MG TAB PO SCH ×2 (08:49→21:02)
[2017-01-02] MEDS: NICOTINE 21 MG/24 HR PATCH T-DERMAL SCH (08:49)
--- NOTE | 2017-01-02 17:41 | HHI.PYPN ---
Subjective Remarks Patient seen for follow-up, chart reviewed. As per nursing report and discussion with staff patient noted to be seclusive refused blood work this morning and has been superficially pleasant. Patient found later that day attending groups for activities. Noted to be calm and cooperative interview. Patient states that she had been attending groups since yesterday and also attended a spirituality group here in the unit. Patient states that she is sleeping well, tolerating medications well and states "I realized I needed my Zyprexa". As she reports having clearer mind and thoughts. Patient at this time denies any perceptual disturbance Patient requests if she can transferred to the less acute unit as she feels that her current unit is smaller and at times feels uncomfortable with the other patients when there are arguments among them. Review of Systems Except as stated in HPI: all other systems reviewed are Neg Objective Alert: Yes [place]: Person, Place Mood: Calm, Other (okay) Affect: Other (less constricted today) Memory Intact: Comment (impaired) Hallucinations: Other (denies) Delusions: Yes Delusion Type: Paranoid (less so today) Suicidal: Ideation (denies) Homicidal: Ideation (denies denies) Insight/Judgment Improved insight, fair post control and judgment Vitals/IOs Vital Signs Date Time Temp Pulse Resp B/P (MAP) Pulse Ox O2 Delivery O2 Flow Rate FiO2 12/31/16 19:54 97.5 76 18 107/61 (76) 98 Assessment & Plan Problem List: (1) Schizoaffective disorder ICD Codes: F25.9 - Schizoaffective disorder, unspecified Status: Acute Assessment & Plan Patient at this time noted to be less paranoid with more organized thought process. Patient recently has been more participating in groups and activities on the unit. Although patient refuses labs had agreed to have them done. Continue current treatment, discharge planning in progress. Justification for Cont. Inpt. Patient at risk for further decompensation if at a lower level of care Problem Qualifiers (1) Schizoaffective disorder: Fito Yin MD Jan 02, 2017 17:40
[2017-01-02 17:45] VITALS: BP 106/61; PULSE 80; RESP 17; TEMP 97.9; O2SAT 97
[2017-01-03] MEDS: OLANZapine 10 MG TAB PO SCH ×2 (09:23→21:11)
[2017-01-03] MEDS: NICOTINE 21 MG/24 HR PATCH T-DERMAL SCH (09:26)
--- NOTE | 2017-01-03 12:23 | HHI.PYPN ---
Subjective Remarks Pt seen and discussed with staff. She has been withdrawn and seclusive to room. She initially refused labs but later approached nurse to consent. She has been compliant with medications and denies side effects. Objective Alert: Yes [place]: Person, Place Mood: Calm, Other (okay) Affect: Other (less constricted today) Memory Intact: Comment (impaired) Hallucinations: Other (denies) Delusions: Yes Delusion Type: Paranoid (decreased) Suicidal: Ideation (denies) Homicidal: Ideation (denies denies) Insight/Judgment poor Vitals/IOs Vital Signs Date Time Temp Pulse Resp B/P (MAP) Pulse Ox O2 Delivery O2 Flow Rate FiO2 01/02/17 17:45 97.9 80 17 106/61 (76) 97 Assessment & Plan Problem List: (1) Schizoaffective disorder ICD Codes: F25.9 - Schizoaffective disorder, unspecified Status: Acute Assessment & Plan Continue current tx plan. Estimated LOS: days Justification for Cont. Inpt. impairments in reality testing Problem Qualifiers (1) Schizoaffective disorder: Qualified Codes: F25.0 - Schizoaffective disorder, bipolar type Ute Pires MD Jan 03, 2017 12:23
[2017-01-03 14:32] LABS: AUTOMATED NEUTROPHIL # 3.9 TH/MM3 (1.8-7.7); BASOPHIL # 0.1 TH/MM3 (0-0.2); BASOPHIL % 0.8 % (0.0-2.0); EOSINOPHIL # 0.2 TH/MM3 (0-0.4); EOSINOPHIL % 3.3 % (0.0-4.0); HEMATOCRIT 39.8 % (35.0-46.0); HEMO FLAGS DIFF FINAL; LYMPH % 28.5 % (9.0-44.0); LYMPHOCYTE # 1.8 TH/MM3 (1.0-4.8); MEAN CELL VOLUME 93.6 FL (80.0-100.0); MEAN CORPUSCULAR HEMOGLOBIN 31.6 PG (27.0-34.0); MEAN CORPUSCULAR HGB CONC 33.8 % (32.0-36.0); MONO % 7.2 % (0.0-8.0); NEUT % 60.2 % (16.0-70.0); PLATELET COUNT 284 TH/MM3 (150-450); RED BLOOD COUNT 4.25 MIL/MM3 (4.00-5.30); RED CELL DISTRIBUTION WIDTH 13.4 % (11.6-17.2); WHITE BLOOD COUNT 6.4 TH/MM3 (4.0-11.0)
[2017-01-03 15:03] LABS: BICARBONATE 27.4 MEQ/L (21.0-32.0); POTASSIUM 3.9 MEQ/L (3.5-5.1)
[2017-01-03 18:32] VITALS: BP 96/66; PULSE 76; RESP 18; TEMP 97.6; O2SAT 98
[2017-01-04] MEDS: NICOTINE 21 MG/24 HR PATCH T-DERMAL SCH (09:00)
[2017-01-04] MEDS: OLANZapine 10 MG TAB PO SCH ×2 (09:28→21:08)
--- NOTE | 2017-01-04 11:58 | HHI.PYPN ---
Subjective Remarks Pt seen and discussed with staff. She refused to leave room for medications but later came out and requested them. She remains paranoid and withdrawn.No SI/HI Objective Alert: Yes [place]: Person, Place Mood: Calm Affect: Flat Memory Intact: Comment (fair) Hallucinations: Other (denies) Delusions: Yes Delusion Type: Paranoid (decreased) Suicidal: Ideation (denies) Homicidal: Ideation (denies denies) Insight/Judgment poor Labs Test 01/03/17 14:21 White Blood Count 6.4 TH/MM3 Red Blood Count 4.25 MIL/MM3 Hemoglobin 13.4 GM/DL Hematocrit 39.8 % Mean Corpuscular Volume 93.6 FL Mean Corpuscular Hemoglobin 31.6 PG Mean Corpuscular Hemoglobin Concent 33.8 % Red Cell Distribution Width 13.4 % Platelet Count 284 TH/MM3 Mean Platelet Volume 7.2 FL Neutrophils (%) (Auto) 60.2 % Lymphocytes (%) (Auto) 28.5 % Monocytes (%) (Auto) 7.2 % Eosinophils (%) (Auto) 3.3 % Basophils (%) (Auto) 0.8 % Neutrophils # (Auto) 3.9 TH/MM3 Lymphocytes # (Auto) 1.8 TH/MM3 Monocytes # (Auto) 0.5 TH/MM3 Eosinophils # (Auto) 0.2 TH/MM3 Basophils # (Auto) 0.1 TH/MM3 CBC Comment DIFF FINAL Differential Comment Blood Urea Nitrogen 18 MG/DL Creatinine 0.78 MG/DL Random Glucose 114 MG/DL Calcium Level 8.4 MG/DL Sodium Level 139 MEQ/L Potassium Level 3.9 MEQ/L Chloride Level 104 MEQ/L Carbon Dioxide Level 27.4 MEQ/L Anion Gap 8 MEQ/L Estimat Glomerular Filtration Rate 83 ML/MIN Vitals/IOs Vital Signs Date Time Temp Pulse Resp B/P (MAP) Pulse Ox O2 Delivery O2 Flow Rate FiO2 01/03/17 18:32 97.6 76 18 96/66 (76) 98 Assessment & Plan Problem List: (1) Schizoaffective disorder ICD Codes: F25.9 - Schizoaffective disorder, unspecified Status: Acute Assessment & Plan Continue current tx plan. Estimated LOS: days Justification for Cont. Inpt. risk of decompensation Problem Qualifiers (1) Schizoaffective disorder: Qualified Codes: F25.0 - Schizoaffective disorder, bipolar type Ute Pires MD Jan 04, 2017 11:58
[2017-01-04 18:41] VITALS: BP 107/70; PULSE 76; RESP 18; TEMP 97.6; O2SAT 97
[2017-01-05 06:31] VITALS: BP 96/64
[2017-01-05] MEDS: OLANZapine 10 MG TAB PO SCH (09:32)
[2017-01-05] MEDS: NICOTINE 21 MG/24 HR PATCH T-DERMAL SCH (09:32)
--- NOTE | 2017-01-05 15:07 | HHI.PYPN ---
Subjective Remarks Patient seen for follow-up, chart reviewed. As per nursing report patient noted to have an uneventful weekend but was discontinued be noted to be isolative and seclusive. Patient found lying in hospital bed was able to wake up for interview with nurse and counselor. Patient states that this week he was "good" she reports having gone to several groups including spirituality group. Patient states that she continued to take her medication she feels she "needed" wasn't able to elaborate how this medication has helped her. Patient denies any adverse drug reactions. Patient reports that he met with her mother yesterday and states that her mother thinks she is doing fine. Patient this time denies any perceptual disturbances, denies SI or HI. Patient made aware by counselor that she will be met by repetitive from [facility] and to assess her capacity she currently has a felony charge pending. Review of Systems Except as stated in HPI: all other systems reviewed are Neg Objective Alert: Yes [place]: Person, Place Mood: Calm Affect: Restricted (but guarded at times), Flat Memory Intact: Comment (fair) Hallucinations: Other (denies) Delusions: Yes Delusion Type: Paranoid (decreased) Suicidal: Ideation (denies) Homicidal: Ideation (denies denies) Insight/Judgment Limited insight, fair post control and limited judgment Vitals/IOs Vital Signs Date Time Temp Pulse Resp B/P (MAP) Pulse Ox O2 Delivery O2 Flow Rate FiO2 01/05/17 06:31 96/64 (75) 01/04/17 18:41 97.6 76 18 97 Assessment & Plan Problem List: (1) Schizoaffective disorder ICD Codes: F25.9 - Schizoaffective disorder, unspecified Status: Acute Assessment & Plan Patient this time continues noticed slightly paranoid, guarded at times, limited insight. Patient adherent to his current treatment noted to be more engaging in interview. Patient still continues to be seclusive in her room but states that she has been more participatory in groups. Condenser Setter for [facility] will see her today to assess capacity this patient currently has felony charge trial pending. We'll increase olanzapine to 10 mg a.m. 15mg at bedtime. EKG ordered. Discharge planning in progress Justification for Cont. Inpt. At risk for further decompensation if at lower level of care. Problem Qualifiers (1) Schizoaffective disorder: Qualified Codes: F25.0 - Schizoaffective disorder, bipolar type Fito Yin MD Jan 05, 2017 15:07
[2017-01-06 06:12] VITALS: BP 88/59; PULSE 59; RESP 18; TEMP 98.4; O2SAT 97
[2017-01-06] MEDS: NICOTINE 21 MG/24 HR PATCH T-DERMAL SCH (09:30)
[2017-01-06] MEDS: OLANZapine 10 MG TAB PO SCH (09:30)
--- NOTE | 2017-01-06 15:10 | EKG ---
Date Performed: 01/05/2017 Time Performed: 21:27:25 PTAGE: 36 years EKG: SINUS BRADYCARDIA BORDERLINE ECG PREVIOUS TRACING : 03/04/2011 22.23 Since the prior tracing, the diffuse nonspecific T-wave connie nges have resolved. Clinical correlation will be important. DOCTOR: Obdulia Brewer Interpretating Date/Time 01/06/2017 15:09:07
--- NOTE | 2017-01-06 15:32 | HHI.PYPN ---
Subjective Remarks Patient seen for follow, chart review. Patient found lying in hospital bed is able to wake up to interact for interview. She states that she been feeling "good" reports feeling well on current medication regimen denies any adverse drug reactions. She stated that she spoke to her mother and was told that she was able to return home but had a fight after speaking with counselor mother has stated to the counselor that she was not wanting patient to return back home with her. Patient states that it is quite okay that she can return home despite having been told contrary. Patient continues to deny any perceptual disturbances and when asked about perceptual disturbances noted to be more irritable and upset stating that she never had any auditory hallucinations in the past. Review of Systems Except as stated in HPI: all other systems reviewed are Neg Objective Alert: Yes [place]: Person, Place Mood: Calm Affect: Restricted (but guarded at times), Flat Memory Intact: Comment (fair) Hallucinations: Other (denies) Delusions: Yes Delusion Type: Paranoid (decreased) Suicidal: Ideation (denies) Homicidal: Ideation (denies denies) Insight/Judgment Poor insight, fair impulse control, poor judgment Vitals/IOs Vital Signs Date Time Temp Pulse Resp B/P (MAP) Pulse Ox O2 Delivery O2 Flow Rate FiO2 01/06/17 06:12 98.4 59 18 88/59 (69) 97 Assessment & Plan Problem List: (1) Schizoaffective disorder ICD Codes: F25.9 - Schizoaffective disorder, unspecified Status: Acute Assessment & Plan Patient continues to be noted to be very guarded, denies any perceptual disturbances noticed highly irritable when asked about the same. Patient appears to have very poor insight and noted to be very concrete in her thought processes at this time. Continue current treatment. Encouraged patient to maintain personal hygiene and participate in groups and activities on the unit. Discharge planning in progress Justification for Cont. Inpt. At risk for further decompensation if at lower level of care Problem Qualifiers (1) Schizoaffective disorder: Qualified Codes: F25.0 - Schizoaffective disorder, bipolar type Fito Yin MD Jan 06, 2017 15:32
[2017-01-06] MEDS: ACETAMINOPHEN 325 MG TAB PO PRN (17:00)
[2017-01-06 18:04] VITALS: BP 99/55; PULSE 60; RESP 16; TEMP 98.4; O2SAT 96
[2017-01-07 06:09] VITALS: BP 84/52; PULSE 51; RESP 18; TEMP 97.7; O2SAT 96
[2017-01-07] MEDS: NICOTINE 21 MG/24 HR PATCH T-DERMAL SCH (09:22)
[2017-01-07] MEDS: OLANZapine 10 MG TAB PO SCH (09:22)
[2017-01-07 16:10] VITALS: BP 112/60; PULSE 75; RESP 18; TEMP 98.5; O2SAT 98
--- NOTE | 2017-01-07 17:40 | HHI.PYPN ---
Subjective Remarks Patient is seen for follow-up, chart review. After discussion with nursing staff patient noted to be mostly seclusive. Patient found lying in hospital bed patient was able to participate in interview. Patient states that she was feeling "good" reports eating and drinking okay. Patient states that she is sleeping well with good energy and appetite and concentration. Patient reports she has spoken with mom who stated that she was able to return back home with her despite complex information from our counselor receiving contradictory information from mother. Patient denies any perceptual disturbances, reports tolerating medication well. Review of Systems Except as stated in HPI: all other systems reviewed are Neg Objective Alert: Yes [place]: Person, Place Mood: Calm Affect: Restricted (but guarded at times), Flat Memory Intact: Comment (fair) Hallucinations: Other (denies) Delusions: Yes Delusion Type: Paranoid (decreased) Suicidal: Ideation (denies) Homicidal: Ideation (denies denies) Insight/Judgment Poor insight, fair impulse control limited judgment Vitals/IOs Vital Signs Date Time Temp Pulse Resp B/P (MAP) Pulse Ox O2 Delivery O2 Flow Rate FiO2 01/07/17 16:10 98.5 75 18 112/60 (77) 98 Assessment & Plan Problem List: (1) Schizoaffective disorder ICD Codes: F25.9 - Schizoaffective disorder, unspecified Status: Acute Assessment & Plan Patient at this time continues to have poor insight with her current social and legal circumstances. Patient denies any perceptual disturbances patient noted to have mostly negative symptoms at this time. Patient denies any mood symptoms although noted to be slightly irritable at times when asked about perceptual disturbances. Patient encouraged to participate in group and activities on the unit. Continue current treatment discharge planning in progress Justification for Cont. Inpt. At risk for further decompensation if at lower level of care. Problem Qualifiers (1) Schizoaffective disorder: Qualified Codes: F25.0 - Schizoaffective disorder, bipolar type Fito Yin MD Jan 07, 2017 17:40
[2017-01-07] MEDS: ACETAMINOPHEN 325 MG TAB PO PRN (20:10)
[2017-01-07] MEDS: diphenhydrAMINE HCL 50 MG CAP PO PRN (20:11)
[2017-01-08 06:12] VITALS: BP 105/54; PULSE 60; RESP 18; TEMP 98; O2SAT 97
[2017-01-08] MEDS: OLANZapine 10 MG TAB PO SCH (09:00)
[2017-01-08] MEDS: NICOTINE 21 MG/24 HR PATCH T-DERMAL SCH (09:01)
--- NOTE | 2017-01-08 13:44 | HHI.PYPN ---
Subjective Remarks Patient seen for follow up, chart reviewed. Patient was transferred to a different unit and was noted to be less seclusive. Patient found lying on hospital bed able to wake up for interview. Patient states that she has been feeling "good", denies any physical complaints, denies any perceptual disturbances. She reports attending groups and activities. Patient noted to be guarded. Review of Systems Except as stated in HPI: all other systems reviewed are Neg Objective Alert: Yes [place]: Person, Place Mood: Calm Affect: Restricted (but guarded at times), Flat Memory Intact: Comment (fair) Hallucinations: Other (denies) Delusions: Yes Delusion Type: Paranoid (decreased) Suicidal: Ideation (denies) Homicidal: Ideation (denies denies) Insight/Judgment poor insight, fair impulse control, fair judgment Vitals/IOs Vital Signs Date Time Temp Pulse Resp B/P (MAP) Pulse Ox O2 Delivery O2 Flow Rate FiO2 01/08/17 06:12 98.0 60 18 105/54 (71) 97 Intake and Output 01/08/17 01/08/17 01/09/17 08:00 16:00 00:00 Intake Total 240 ml Balance 240 ml Assessment & Plan Problem List: (1) Schizoaffective disorder ICD Codes: F25.9 - Schizoaffective disorder, unspecified Status: Acute Assessment & Plan Patient continues to be noted to be guarded, constricted affect, and appears internally preoccupied at times but minimizes symptoms with contract technical writer. Patient noted to be less seclusive. Continue current treatment. Independent evaluation from [facility] pending. Discharge planning in progress. Justification for Cont. Inpt. at risk for decompensation if at lower level of care Problem Qualifiers (1) Schizoaffective disorder: Qualified Codes: F25.0 - Schizoaffective disorder, bipolar type Fito Yin MD Jan 08, 2017 13:44
[2017-01-08 18:19] VITALS: BP 112/67; PULSE 71; RESP 18; TEMP 98.1; O2SAT 97
[2017-01-08] MEDS: diphenhydrAMINE HCL 50 MG CAP PO PRN (20:27)
[2017-01-08] MEDS: ACETAMINOPHEN 325 MG TAB PO PRN (21:19)
[2017-01-09 05:46] VITALS: BP 101/59; PULSE 60; RESP 16; TEMP 97.9; O2SAT 97
[2017-01-09] MEDS: NICOTINE 21 MG/24 HR PATCH T-DERMAL SCH (08:34)
[2017-01-09] MEDS: OLANZapine 10 MG TAB PO SCH (08:34)
--- NOTE | 2017-01-09 12:32 | HHI.PYPN ---
Subjective Remarks Patient seen for follow-up, chart reviewed. As discussion with nursing staff patient noted to be seclusive, less active in groups recently. Patient found lying in hospital bed was able to wake up and engage in interview today. Patient states she has been feeling "good" and states that she has been attending groups. Patient reports having spoken with mother and as per her conversation with mom is able to return back home. Patient denies any adverse drug reactions to medications states tolerating them well denies any depressive or manic symptoms at this time. Patient has a perceptual disturbances or delusions. Review of Systems Except as stated in HPI: all other systems reviewed are Neg Objective Alert: Yes [place]: Person, Place Mood: Calm Affect: Restricted (but guarded at times), Flat Memory Intact: Comment (fair) Hallucinations: Other (denies) Delusions: Yes Delusion Type: Paranoid (decreased) Suicidal: Ideation (denies) Homicidal: Ideation (denies denies) Insight/Judgment Limited insight, fair impulse control limited judgment Vitals/IOs Vital Signs Date Time Temp Pulse Resp B/P (MAP) Pulse Ox O2 Delivery O2 Flow Rate FiO2 01/09/17 05:46 97.9 60 16 101/59 (73) 97 Assessment & Plan Problem List: (1) Schizoaffective disorder ICD Codes: F25.9 - Schizoaffective disorder, unspecified Status: Acute Assessment & Plan Patient at this time continues to be very guarded, noted to be more organized in thought process, denying any perceptual disturbances at this time. Patient currently awaiting court-appointed physician to evaluate for competency as patient currently pending felony charges and is awaiting to stand trial. Continue current treatment. Discharge planning in progress Justification for Cont. Inpt. At risk for further decompensation if at lower level of care. Problem Qualifiers (1) Schizoaffective disorder: Qualified Codes: F25.0 - Schizoaffective disorder, bipolar type Fito Yin MD Jan 09, 2017 12:32
[2017-01-09 18:14] VITALS: BP 85/43; PULSE 60; RESP 16; TEMP 98.3; O2SAT 97
[2017-01-09] MEDS: diphenhydrAMINE HCL 50 MG CAP PO PRN (21:36)
[2017-01-09] MEDS: ACETAMINOPHEN 325 MG TAB PO PRN (21:54)
[2017-01-10 06:13] VITALS: BP 101/61; PULSE 70; RESP 16; TEMP 97.9; O2SAT 98
[2017-01-10] MEDS: OLANZapine 10 MG TAB PO SCH (09:00)
[2017-01-10] MEDS: NICOTINE 21 MG/24 HR PATCH T-DERMAL SCH (09:00)
--- NOTE | 2017-01-10 15:07 | HHI.PYPN ---
Subjective Remarks Patient was seen and case discussed with nursing. Per nursing she is more seclusive today, not going to groups. During the interview patient is pleasant but vague with poor insight into her mental health history and admission. She denies auditory visual hallucinations. No delusions elicited. Compliant with medications Objective Alert: Yes [place]: Person, Place Mood: Calm Affect: Restricted (but guarded at times), Flat Memory Intact: Comment (fair) Hallucinations: Other (denies) Delusions: Yes Delusion Type: Paranoid (decreased) Suicidal: Ideation (denies) Homicidal: Ideation (denies) Insight/Judgment Poor Vitals/IOs Vital Signs Date Time Temp Pulse Resp B/P (MAP) Pulse Ox O2 Delivery O2 Flow Rate FiO2 01/10/17 06:13 97.9 70 16 101/61 (74) 98 Assessment & Plan Problem List: (1) Schizoaffective disorder ICD Codes: F25.9 - Schizoaffective disorder, unspecified Status: Acute Assessment & Plan Continue current treatment plan Justification for Cont. Inpt. Patient will decompensate in a less restrictive setting Problem Qualifiers (1) Schizoaffective disorder: Qualified Codes: F25.0 - Schizoaffective disorder, bipolar type David Degroot DO Jan 10, 2017 15:07
[2017-01-11 05:57] VITALS: BP 106/58; PULSE 70; RESP 16; TEMP 97.6; O2SAT 98
[2017-01-11] MEDS: NICOTINE 21 MG/24 HR PATCH T-DERMAL SCH (09:00)
[2017-01-11] MEDS: OLANZapine 10 MG TAB PO SCH (09:45)
--- NOTE | 2017-01-11 13:35 | HHI.PYPN ---
Subjective Remarks Patient was seen and case discussed with nursing. Patient is pleasant and cooperative with exam. Eating and sleeping well per nursing. She remains withdrawn and largely seclusive to room. Insight remains poor. Blunted affect. Compliant with her medications. No physical or verbal outbursts. When outside today for to spirituality group yesterday Objective Alert: Yes [place]: Person, Place Mood: Calm Affect: Blunted Memory Intact: Comment (fair) Hallucinations: Other (denies) Delusions: Yes Delusion Type: Paranoid (decreased) Suicidal: Ideation (denies) Homicidal: Ideation (denies) Insight/Judgment Poor Vitals/IOs Vital Signs Date Time Temp Pulse Resp B/P (MAP) Pulse Ox O2 Delivery O2 Flow Rate FiO2 01/11/17 05:57 97.6 70 16 106/58 (74) 98 Assessment & Plan Problem List: (1) Schizoaffective disorder ICD Codes: F25.9 - Schizoaffective disorder, unspecified Status: Acute Assessment & Plan Continue current treatment plan Justification for Cont. Inpt. Patient would decompensate in a less restrictive setting Problem Qualifiers (1) Schizoaffective disorder: Qualified Codes: F25.0 - Schizoaffective disorder, bipolar type David Degroot DO Jan 11, 2017 13:34
[2017-01-11 20:00] VITALS: BP 161/55; PULSE 61; RESP 16; TEMP 98; O2SAT 95
[2017-01-12] MEDS: diphenhydrAMINE HCL 50 MG CAP PO PRN (00:57)
[2017-01-12 05:29] VITALS: BP 100/63; PULSE 57; RESP 16; TEMP 98.5; O2SAT 97
[2017-01-12] MEDS: NICOTINE 21 MG/24 HR PATCH T-DERMAL SCH (09:02)
[2017-01-12] MEDS: OLANZapine 10 MG TAB PO SCH (09:02)
--- NOTE | 2017-01-12 16:18 | HHI.PYPN ---
Subjective Remarks Patient seen for follow-up, chart reviewed. Patient found lying in hospital bed , asleep was able to wake up to engage in interview today. Patient states that sitting feeling "very good" denies any depressive manic symptoms at this time patient denies any perceptual disturbances. Patient states that she was visited by her mother yesterday which went well and states that her mother is okay with her being return back to live with her. Patient also where that she will be seen by an independent fret saw operator from [facility] and to assess whether patient is competent to stand trial. Patient states that she is participating in groups and activities are sometimes she misses breakfast in the morning but that she is usually not in bed all day. Review of Systems Except as stated in HPI: all other systems reviewed are Neg Objective Alert: Yes [place]: Person, Place Mood: Calm Affect: Blunted Memory Intact: Comment (fair) Hallucinations: Other (denies) Delusions: Yes Delusion Type: Paranoid (decreased) Suicidal: Ideation (denies) Homicidal: Ideation (denies) Insight/Judgment Limited insight, impulse control and judgment Vitals/IOs Vital Signs Date Time Temp Pulse Resp B/P (MAP) Pulse Ox O2 Delivery O2 Flow Rate FiO2 01/12/17 05:29 98.5 57 16 100/63 (75) 97 Assessment & Plan Problem List: (1) Schizoaffective disorder ICD Codes: F25.9 - Schizoaffective disorder, unspecified Status: Acute Assessment & Plan Patient at this time continues to respond well to current treatment although continues to be very guarded during interview but denying any perceptual disturbances. Patient is noted to participate in some groups and activities but also as per nursing is usually seclusive in her room at times. Independent evaluation from [facility] for competency to stand trial is currently pending. Continue current treatment, discharge planning in progress Justification for Cont. Inpt. At risk for decompensation if it lower level of care Problem Qualifiers (1) Schizoaffective disorder: Qualified Codes: F25.0 - Schizoaffective disorder, bipolar type Fito Yin MD Jan 12, 2017 16:18
[2017-01-12 18:00] VITALS: BP 82/61; PULSE 98; RESP 16; TEMP 98.5; O2SAT 97
[2017-01-12 20:21] VITALS: BP 92/64
[2017-01-13 06:20] VITALS: PULSE 55; RESP 17; TEMP 99; O2SAT 96
[2017-01-13] MEDS: OLANZapine 10 MG TAB PO SCH (09:28)
[2017-01-13] MEDS: NICOTINE 21 MG/24 HR PATCH T-DERMAL SCH (09:28)
--- NOTE | 2017-01-13 13:28 | HHI.PYPN ---
Subjective Remarks Patient seen for follow up, chart reviewed. After discussion with nursing staff , patient noted to be mostly seclusive, not very engaging with staff. Patient found lying on hospital bed asleep but able to wake up for interview. Patient states that she has been feeling "well" and states that she has been participating in groups and activities but was mentioned that staff has noticed her mostly in bed. Patient states that she has been participatory and plans on doing the same. Patient denies any mood symptoms although noted to be guarded during interview but not irritable today. She denies any perceptual disturbances. Patient aware that she will be evaluated by independent psychiatrist to determine that she has capacity to participate in court. Review of Systems Except as stated in HPI: all other systems reviewed are Neg Objective Alert: Yes [place]: Person, Place Mood: Calm Affect: Restricted Memory Intact: Comment (fair) Hallucinations: Other (denies) Delusions: Yes Delusion Type: Paranoid (less so) Suicidal: Ideation (denies) Homicidal: Ideation (denies) Insight/Judgment limited insight, impulse control, judgment Vitals/IOs Vital Signs Date Time Temp Pulse Resp B/P (MAP) Pulse Ox O2 Delivery O2 Flow Rate FiO2 01/13/17 06:20 99.0 55 17 96 Intake and Output 01/13/17 01/13/17 01/13/17 07:59 15:59 23:59 Intake Total 240 ml Balance 240 ml Assessment & Plan Problem List: (1) Schizoaffective disorder ICD Codes: F25.9 - Schizoaffective disorder, unspecified Status: Acute Assessment & Plan Patient continues to be isolative but has not had any behavioral dyscontrol. Patient compliant with treatment, continues to require encouragement to be less seclusive. Continue current treatment. Discharge planning in progress. Treatment team has been trying to reach the independent associate professor. Will arrange to have family meeting with patient's mother for discharge planning. Justification for Cont. Inpt. At risk for decompensation if it lower level of care Problem Qualifiers (1) Schizoaffective disorder: Qualified Codes: F25.0 - Schizoaffective disorder, bipolar type Fito Yin MD Jan 13, 2017 13:28
[2017-01-13 18:32] VITALS: BP 89/54; PULSE 66; RESP 16; TEMP 98.9; O2SAT 98
[2017-01-14] MEDS: NICOTINE 21 MG/24 HR PATCH T-DERMAL SCH (08:23)
[2017-01-14] MEDS: OLANZapine 10 MG TAB PO SCH (08:23)
--- NOTE | 2017-01-14 15:17 | HHI.PYPN ---
Subjective Remarks Patient seen for follow-up, chart review. Patient found eating lunch but was able to engage in interview today. Patient noted to be slightly more reactive today with occasional smiling. She states that she has been feeling "good", reports tolerating treatment regimen well. Patient is aware that independent medical unit secretary to assess her competency to stand trial will be coming tomorrow for the evaluation. Patient noted to be looking forward to this evaluation as she is hoping to be discharged thereafter. Patient states that she is currently out on [place] for her current felony charges and that she is aware that she must report weekly to the court system until her pretrial. Patient states that mother is also aware of this. Review of Systems Except as stated in HPI: all other systems reviewed are Neg Objective Alert: Yes [place]: Person, Place Mood: Calm Affect: Restricted (more reactive today) Memory Intact: Comment (fair) Hallucinations: Other (denies) Delusions: Yes Delusion Type: Paranoid (less so) Suicidal: Ideation (denies) Homicidal: Ideation (denies) Insight/Judgment Limited insight, fair interest control, limited judgment Vitals/IOs Vital Signs Date Time Temp Pulse Resp B/P (MAP) Pulse Ox O2 Delivery O2 Flow Rate FiO2 01/13/17 18:32 98.9 66 16 89/54 (66) 98 Assessment & Plan Problem List: (1) Schizoaffective disorder ICD Codes: F25.9 - Schizoaffective disorder, unspecified Status: Acute Assessment & Plan Patient this time continues to be calm and cooperative with staff with no behavioral issues. Patient noted to be slightly more reactive with more affect today. Continue current treatment. Patient will have an independent medical unit secretary assess her tomorrow for competency to stand trial. Continue to encourage patient to maintain personal hygiene and to participate in groups and activities while on the unit. Discharge planning in progress Justification for Cont. Inpt. At risk for decompensation if it lower level of care Problem Qualifiers (1) Schizoaffective disorder: Qualified Codes: F25.0 - Schizoaffective disorder, bipolar type Fito Yin MD Jan 14, 2017 15:17
[2017-01-14 18:22] VITALS: BP 97/63; PULSE 93; RESP 18; TEMP 97.8; O2SAT 97
[2017-01-15 06:10] VITALS: BP 98/55; PULSE 62; RESP 16; TEMP 98.1; O2SAT 98
[2017-01-15] MEDS: NICOTINE 21 MG/24 HR PATCH T-DERMAL SCH (09:00)
[2017-01-15] MEDS: OLANZapine 10 MG TAB PO SCH (09:00)
[2017-01-15] MEDS ORDERED: OLAN15TA PO (12:09)
[2017-01-15] MEDS ORDERED: OLAN10TA PO (12:09)
--- NOTE | 2017-01-15 13:35 | HHI.PYPN ---
Subjective Remarks Patient seen for follow-up, chart reviewed. Patient was evaluated by independent psychiatrist to assess for, Cepastat trial. Patient was seen for follow-up thereafter states that she felt it went well. Patient states that even when she is discharged she would like to return back home with mother. Patient reports responding well to current treatment denies any adverse drug reactions. Patient denies any mood or psychotic symptoms at this time. Patient states she is getting of her meals and participating in groups and activities while on the unit. Review of Systems Except as stated in HPI: all other systems reviewed are Neg Objective Alert: Yes [place]: Person, Place Mood: Calm Affect: Appropriate Memory Intact: Comment (fair) Hallucinations: Other (denies) Delusions: No Delusion Type: Other (denies) Suicidal: Ideation (denies) Homicidal: Ideation (denies) Insight/Judgment Limited insight, fair post control and judgment Vitals/IOs Vital Signs Date Time Temp Pulse Resp B/P (MAP) Pulse Ox O2 Delivery O2 Flow Rate FiO2 01/15/17 06:10 98.1 62 16 98/55 (69) 98 Assessment & Plan Problem List: (1) Schizoaffective disorder ICD Codes: F25.9 - Schizoaffective disorder, unspecified Status: Acute Assessment & Plan Patient at this time continues to respond well to current treatment, noted to be more interactive with staff participating in groups and activities had not noted to be so seclusive as she has done in the past. Patient noted to be able to engage appropriately in interview. Patient completed evaluation by independent psychiatrist to determine, to stand trial. Patient likely to be discharged tomorrow back to mother's care with outpatient follow-up thereafter. Discharge planning in progress Justification for Cont. Inpt. At risk for decompensation if it lower level of care Problem Qualifiers (1) Schizoaffective disorder: Qualified Codes: F25.0 - Schizoaffective disorder, bipolar type Fito Yin MD Jan 15, 2017 13:35
[2017-01-15 18:19] VITALS: BP 119/77; PULSE 71; RESP 17; TEMP 98.1; O2SAT 99
[2017-01-16 05:19] VITALS: BP 102/63; PULSE 58; RESP 16; TEMP 97.6; O2SAT 98
[2017-01-16] MEDS: NICOTINE 21 MG/24 HR PATCH T-DERMAL SCH (09:00)
[2017-01-16] MEDS: OLANZapine 10 MG TAB PO SCH (09:00)
--- NOTE | 2017-01-16 10:52 | HHI.DS ---
Psychiatry Discharge Summary Inpatient Psychiatric care?: Yes Advance Directive: No Mental Health AdvanceDirective: No Health Care Proxy: No Admission Admission Date Dec 24, 2016 at 19:42 Admission Diagnosis: (1) Schizoaffective disorder ICD Code: F25.9 - Schizoaffective disorder, unspecified Brief History Patient is a 36-year-old woman, , has 3 children in foster care, domicile with mother since August of this year in [place], unemployed on SSI, past psychiatric history of schizoaffective disorder, multiple psychiatric hospitalizations (previous [facility]), no previous suicide attempts or self-injurious behavior, who was brought in under export a for delusions or hallucinations and is now admitted to the inpatient psychiatric unit for further evaluation and management. Patient was found walking on hospital unit but was able to engage in interview. Patient states that she was which the discharge from [facility] after 1 month inpatient hospitalization. She states that since discharge she has been having difficulty purchasing her medications due to waiting for her SSI check. Patient reports that she had tried to go to [facility] act that from there she was sent here to the hospital. She reports that since her last discharge she had not been on medication, has not been sleeping for the past 3 days, had any having increased activities, reports her mood as being regular, concentration has been okay, denies any depressive symptoms. Patient states that she would just like to return back to taking her medications. She denies any perceptual disturbances or delusions at this time. Patient noted to be minimizing some symptoms, noted to bes disorganized at times during interview. Patient initially agreed to have team contact her mother for collateral information been refuses but then agreed again Past psychiatric history: Previous psychiatric diagnoses of schizoaffective disorder, multiple previous psychiatric hospitalizations, with a previous [facility], last hospitalization was [facility] for a one-month duration. Patient reports previous medication trials including Depakote, Invega , Zyprexa, Wellbutrin, Geodon, Klonopin. Patient denies any previous suicide attempts or self-injurious behavior. Patient denies any history of abuse. Family psychiatric history: Denies mental illness in the family, denies any suicides Substance use history: Tobacco(+), denies alcohol or any drug use. Past medical history denies Allergies NKDA Legal history denies Social history , has 3 children in foster care, currently living mother since August but prior to that was living in [place]. Patient play with [employer] benefits. Highest education is GED. Tobacco Use In Past 30 Days: No Tobacco Past 30 Days Alcohol Use: Monthly or Less Hospital Course Patient showed compliance with medication and with milieu from early on in admission, had no complaints of issues with the medication regimen. Patient now denying suicidality homicidality voices or visions. States she's feeling well a medication regimen and feels she is ready to return home with her mother to follow-up outpatient through [facility] act. Thus patient will be discharged today Rx 1 month follow-up [facility] act Results Blood Pressure 102 / 63 Vital Signs Date Time Temp Pulse Resp B/P (MAP) Pulse Ox O2 Delivery O2 Flow Rate FiO2 01/16/17 05:19 97.6 58 16 102/63 (76) 98 Laboratory Results Test 12/25/16 09:30 Cholesterol Level 151 MG/DL (120-200) HDL Cholesterol 57.4 MG/DL (40.0-60.0) Hemoglobin A1c 5.2 % (4.3-6.0) LDL Cholesterol 76 MG/DL (0-99) Triglycerides Level 86 MG/DL (42-150) Summary of Procedures None done Pending results at discharge: No Medications # of Antipsychotic meds at D/C: 1 Approp Antipsych med options 1 - Minimum of three failed multiple trials of monotherapy. 2 - Documented plan to taper to monotherapy due to previous use of multiple meds OR cross-taper in progress at D/C. 3 - Documentation of augmentation of Clozapine. 4 - Justification other than those listed in allowable values 1-3, document here : Discharge Discharge Date: Jan 16, 2017 Discharge Diagnosis: (1) Schizoaffective disorder Diagnosis: Principal ICD Code: F25.9 - Schizoaffective disorder, unspecified Status: Acute Mental Status Exam at Disch Alert oriented thin slender white female very sure contact our care. She is normal active. Her mood is euthymic with slight decreased range intensity of her affect. Speech rate and rhythm are within normal limits though no formal thought disorders. No auditory or visual hallucinations. No delusions. Insight and judgment is poor to fair. Cognition grossly intact Pt Condition on Discharge: Stable Discharge Disposition: Discharge Home Discharge Instructions Diet Instructions: As Tolerated, No Restrictions Activities you can perform: Regular-No Restrictions Scheduled Appointment: Lamine Steen Discharge Time > 30 minutes Discharge/Advance Care Plan Health Problems: (1) Schizoaffective disorder Goals to promote your health * To prevent worsening of your condition and complications * To maintain your health at the optimal level Directions to meet your goals Take your medications as prescribed Follow your dietary instruction Follow activity as directed Keep your appointments as scheduled Take your immunizations and boosters as scheduled If your symptoms worsen call your PCP, if no PCP go to Urgent Care Center or Emergency Room For 01/12 questions related to your inpatient stay or results of tests pending at discharge, please contact Dr. Cornel Tsang at Smoking is Dangerous to Your Health. Avoid second hand smoking Problem Qualifiers (1) Schizoaffective disorder: Qualified Codes: F25.0 - Schizoaffective disorder, bipolar type Cornel Tsang MD Jan 16, 2017 10:52
== END 2017-01-16 13:10 | disposition home or self-care (01) | DRG 885 ==
LOC: NEPJ 17:30 → NEDA 19:42 → H270 23:59 → H260 01-08 08:28
PROVIDERS: ADMIT Psychiatry & Neurology Psychiatry; ATTEND Psychiatry & Neurology Psychiatry
DX: F25.0 Schizoaffective disorder, bipolar type (principal); Z91.14 Patient's other noncompliance with medication regimen; F17.210 Nicotine dependence, cigarettes, uncomplicated
CPT/HCPCS: 80048; 80053; 80061; 80307; 83036; 85025; 93005; 99285; Q0163

== ENCOUNTER 2017-01-22 13:44 | Inpatient (IN) | payer MEDICARE, OTHER ==
[~2017-01-22] VITALS: Ht 160 cm; Wt 58.6 kg
[~2017-01-22 13:44] MED LIST changes: +OLAN10TA PO; +OLAN15TA PO; -ZYPR10TA9 PO; -ZYPR15TA12 PO
[2017-01-22 13:54] VITALS: BP 130/62; PULSE 107; RESP 16; TEMP 98.9; O2SAT 99
[2017-01-22 14:18] LABS: AUTOMATED NEUTROPHIL # 9.1 TH/MM3 (1.8-7.7); BASOPHIL # 0.1 TH/MM3 (0-0.2); BASOPHIL % 0.5 % (0.0-2.0); EOSINOPHIL # 0.1 TH/MM3 (0-0.4); EOSINOPHIL % 0.4 % (0.0-4.0); HEMATOCRIT 38.2 % (35.0-46.0); HEMO FLAGS DIFF FINAL; LYMPH % 14.8 % (9.0-44.0); LYMPHOCYTE # 1.8 TH/MM3 (1.0-4.8); MEAN CELL VOLUME 92.1 FL (80.0-100.0); MEAN CORPUSCULAR HEMOGLOBIN 31.8 PG (27.0-34.0); MEAN CORPUSCULAR HGB CONC 34.5 % (32.0-36.0); MONO % 8.1 % (0.0-8.0); NEUT % 76.2 % (16.0-70.0); PLATELET COUNT 319 TH/MM3 (150-450); RED BLOOD COUNT 4.14 MIL/MM3 (4.00-5.30); RED CELL DISTRIBUTION WIDTH 13.5 % (11.6-17.2); WHITE BLOOD COUNT 11.9 TH/MM3 (4.0-11.0)
[2017-01-22 14:32] LABS: ALT (GPT) 22 U/L (10-53); ANION GAP 11 MEQ/L (5-15); AST (GOT) 16 U/L (15-37); BICARBONATE 21.3 MEQ/L (21.0-32.0); BLOOD UREA NITROGEN 10 MG/DL (7-18); CHLORIDE 107 MEQ/L (98-107); GLOMERULAR FILTRATION RATE 70 ML/MIN (>89); POTASSIUM 3.8 MEQ/L (3.5-5.1); SODIUM (NA) 139 MEQ/L (136-145)
[2017-01-22 14:40] LABS: ALKALINE PHOSPHATASE 52 U/L (45-117); TOTAL BILIRUBIN ADULT 0.2 MG/DL (0.2-1.0)
[2017-01-22 14:47] LABS: ACETAMINOPHEN LESS THAN 2.0 MCG/ML (10.0-30.0)
[2017-01-22 14:56] VITALS: BP 137/97; PULSE 88; RESP 18; TEMP 96.1; O2SAT 97
--- NOTE | 2017-01-22 16:07 | PD ---
HPI Chief Complaint: Psychiatric Symptoms Time Seen by Provider: 16:05 Travel History International Travel<30 days: No Contact w/Intl Traveler<30days: No Traveled to known affect area: No History of Present Illness HPI 36-year-old female with history of schizoaffective disorder presents to the emergency department under [place] act for psychiatric evaluation. Patient has not been taking her meds. She is acutely psychotic. It is near impossible to have a conversation with her at this time as she keeps rambling and aching in conversation on different paths. Questions what my purposes. Denies any acute medical needs at this time. PFSH Past Medical History Autoimmune Disease: No Bipolar Disorder: Yes Anxiety: No Depression: No Cardiovascular Problems: No (Per pt) Endocrine: No Genitourinary: No Headaches: Yes Immune Disorder: No Musculoskeletal: No Neurologic: No Psychiatric: Yes (Schizoaffective DO) Reproductive: No Respiratory: No Schizophrenia: Yes Seizures: No (per pt) ?: Not : 3 Para: 1 : 1 Past Surgical History Section: Yes Gynecologic Surgery: Yes Social History Alcohol Use: No Tobacco Use: Yes Substance Use: No Allergies-Medications (Allergen,Severity, Reaction): Coded Allergies: No Known Allergies (Verified , 10/27/16) Reported Meds & Prescriptions Reported Meds & Active Scripts Active Olanzapine 10 Mg Tab 10 Mg PO DAILY 15 Days Olanzapine 15 Mg Tab 15 Mg PO HS 15 Days Review of Systems ROS Limitations: Uncooperative, Psychotic Except as stated in HPI: all other systems reviewed are Neg Physical Exam Exam Limitations: Uncooperative, Combative Narrative GENERAL: Well urged female patient, sitting on the floor, in no acute distress SKIN: Focused skin assessment appears dry. HEAD: Atraumatic. Normocephalic. EYES: Pupils equal and round. No scleral icterus. No injection or drainage. ENT: No nasal bleeding or discharge. Mucous membranes pink and moist. NECK: Trachea midline. CARDIOVASCULAR: Regular rate RESPIRATORY: No accessory muscle use. GASTROINTESTINAL: Abdomen nondistended. MUSCULOSKELETAL: No obvious deformities. No clubbing. No cyanosis. No edema. NEUROLOGICAL: Awake and alert. Moves all extremities. Clear speech Data Data Last Documented VS Vital Signs Date Time Temp Pulse Resp B/P (MAP) Pulse Ox O2 Delivery O2 Flow Rate FiO2 01/22/17 14:56 96.1 88 18 137/97 (110) 97 Orders Orders Psych Screen (01/22/17 13:59) Complete Blood Count With Diff (01/22/17 13:59) Comprehensive Metabolic Panel (01/22/17 13:59) Tylenol (Acetaminophen) (01/22/17 13:59) Urinalysis - C+S If Indicated (01/22/17 13:59) Drug Screen, Random Urine (01/22/17 14:01) Diet Regular Basic (01/22/17 Dinner) Labs Laboratory Tests Test 01/22/17 14:05 White Blood Count 11.9 TH/MM3 Red Blood Count 4.14 MIL/MM3 Hemoglobin 13.2 GM/DL Hematocrit 38.2 % Mean Corpuscular Volume 92.1 FL Mean Corpuscular Hemoglobin 31.8 PG Mean Corpuscular Hemoglobin Concent 34.5 % Red Cell Distribution Width 13.5 % Platelet Count 319 TH/MM3 Mean Platelet Volume 7.5 FL Neutrophils (%) (Auto) 76.2 % Lymphocytes (%) (Auto) 14.8 % Monocytes (%) (Auto) 8.1 % Eosinophils (%) (Auto) 0.4 % Basophils (%) (Auto) 0.5 % Neutrophils # (Auto) 9.1 TH/MM3 Lymphocytes # (Auto) 1.8 TH/MM3 Monocytes # (Auto) 1.0 TH/MM3 Eosinophils # (Auto) 0.1 TH/MM3 Basophils # (Auto) 0.1 TH/MM3 CBC Comment DIFF FINAL Differential Comment Blood Urea Nitrogen 10 MG/DL Creatinine 0.91 MG/DL Random Glucose 108 MG/DL Total Protein 7.7 GM/DL Albumin 4.0 GM/DL Calcium Level 8.9 MG/DL Alkaline Phosphatase 52 U/L Aspartate Amino Transf (AST/SGOT) 16 U/L Alanine Aminotransferase (ALT/SGPT) 22 U/L Total Bilirubin 0.2 MG/DL Sodium Level 139 MEQ/L Potassium Level 3.8 MEQ/L Chloride Level 107 MEQ/L Carbon Dioxide Level 21.3 MEQ/L Anion Gap 11 MEQ/L Estimat Glomerular Filtration Rate 70 ML/MIN Acetaminophen Level LESS THAN 2.0 MCG/ML MDM Medical Decision Making Medical Screen Exam Complete: Yes Emergency Medical Condition: Yes Medical Record Reviewed: Yes Differential Diagnosis Acute psychosis versus mood disorder versus personality disorder versus adjustment reaction disorder Narrative Course 36-year-old female presents to emergency department for evaluation under [place] act. Patient is acutely psychotic. Appears without distress. Vital signs are stable. Physical exam was limited due to patient's noncooperation. Laboratory Tests Test 01/22/17 14:05 White Blood Count 11.9 TH/MM3 Red Blood Count 4.14 MIL/MM3 Hemoglobin 13.2 GM/DL Hematocrit 38.2 % Mean Corpuscular Volume 92.1 FL Mean Corpuscular Hemoglobin 31.8 PG Mean Corpuscular Hemoglobin Concent 34.5 % Red Cell Distribution Width 13.5 % Platelet Count 319 TH/MM3 Mean Platelet Volume 7.5 FL Neutrophils (%) (Auto) 76.2 % Lymphocytes (%) (Auto) 14.8 % Monocytes (%) (Auto) 8.1 % Eosinophils (%) (Auto) 0.4 % Basophils (%) (Auto) 0.5 % Neutrophils # (Auto) 9.1 TH/MM3 Lymphocytes # (Auto) 1.8 TH/MM3 Monocytes # (Auto) 1.0 TH/MM3 Eosinophils # (Auto) 0.1 TH/MM3 Basophils # (Auto) 0.1 TH/MM3 CBC Comment DIFF FINAL Differential Comment Blood Urea Nitrogen 10 MG/DL Creatinine 0.91 MG/DL Random Glucose 108 MG/DL Total Protein 7.7 GM/DL Albumin 4.0 GM/DL Calcium Level 8.9 MG/DL Alkaline Phosphatase 52 U/L Aspartate Amino Transf (AST/SGOT) 16 U/L Alanine Aminotransferase (ALT/SGPT) 22 U/L Total Bilirubin 0.2 MG/DL Sodium Level 139 MEQ/L Potassium Level 3.8 MEQ/L Chloride Level 107 MEQ/L Carbon Dioxide Level 21.3 MEQ/L Anion Gap 11 MEQ/L Estimat Glomerular Filtration Rate 70 ML/MIN Acetaminophen Level LESS THAN 2.0 MCG/ML Patient is medically cleared to undergo psychiatric screening for further evaluation and disposition. Mental health screening discussed with the patient. Psychiatric screen ordered. Diagnosis Primary Impression: Psychosis Qualified Codes: F29 - Unspecified psychosis not due to a substance or known physiological condition Additional Impression: Schizo-affective schizophrenia, chronic condition with acute exacerbation Condition: Stable Zoë Jackson Jan 22, 2017 16:07
[2017-01-22] MEDS ORDERED: ZIPRASIDONE MESYLATE 20 MG VIAL IM ONE ×2 (16:16→16:30)
[2017-01-22] MEDS ORDERED: diphenhydrAMINE HCL 50 MG/ML VIAL ONE (16:16)
[2017-01-22] MEDS ORDERED: diphenhydrAMINE HCL 50 MG/ML VIAL IM ONE (16:30)
--- NOTE | 2017-01-22 17:02 | PD ---
History of Present Illness Chief Complaint: Psychiatric Symptoms Time Seen by Provider: 16:15 Travel History International Travel<30 Days: No Contact w/Intl Traveler<30days: No Known affected area: No Legal Status Legal Status: [place] Act [place] Act Signed By: PRATIMA AT [facility] Antonio MITCHELL History of Present Illness: History of Present Illness 36-year-old female with history of schizoaffective disorder who presents to the emergency department under involuntary status initiated by PRATIMA at [facility]. As per the report the patient presented to an appointment and was " manic, bizarre, paranoid. Speech rapid, pressured and circumstantial. Mother reported she has not been taking medications since she was discharged. Upon arrival to ED she was immediately placed in J pod. She has been restless, has been responding to internal stimuli, intrusive with other patient's, easily agitated. When engaged she repeats " medical attention", medical attention". She is unable to answer any questions at this time. She requires ETO while in J pod as she became verbally hostile, intrusive and arguing with other patients in unit and unable to be redirected. Pending labs at this time. PFSH Past Medical History Autoimmune Disease: No Bipolar Disorder: Yes Anxiety: No Depression: No Cardiovascular Problems: No (Per pt) Endocrine: No Genitourinary: No Headaches: Yes Immune Disorder: No Musculoskeletal: No Neurologic: No Psychiatric: Yes (Schizoaffective DO) Reproductive: No Respiratory: No Schizophrenia: Yes Seizures: No (per pt) ?: Not : 3 Para: 1 : 1 Past Surgical History Section: Yes Gynecologic Surgery: Yes Psychiatric History Psychiatric History Hx Psychiatric Treatment[place] [facility] Jan 16, 2017. Has had five total admissions [place] [facility] History of Inpatient Treatment: Yes Guns or firearms in home: No (unable to determine) Social History obtained from previous admission. Has 3 children, lives with her mother, on SSI. Hx Alcohol Use: No Hx Tobacco Use: Yes Hx Substance Use: No Substance Use Type: Alcohol Other Substances Used: ALCOHOL SOMETIMES Hx of Substance Use Treatment: No Allergies-Medications (Allergen,Severity, Reaction): Coded Allergies: No Known Allergies (Verified , 10/27/16) Reported Meds & Prescriptions Reported Meds & Active Scripts Active Olanzapine 10 Mg Tab 10 Mg PO DAILY 15 Days Olanzapine 15 Mg Tab 15 Mg PO HS 15 Days Review of Systems ROS Limitations: Psychotic Exam Exam Limitations: Psychotic Alert: Yes [place]: Person Mood: Agitated Affect: Restricted Speech: Clear, Pressured, Illogical, Flight of Ideas Eye Contact: Indirect Memory Intact: Comment (unable to test) Hallucinations: Other (Appears internally stimulated) Delusions: Yes Delusion Type: Paranoid (as per documentation provided by [facility]) Suicidal: Ideation (Unable to determine) Homicidal: Ideation (unable to determine) Insight/Judgement Poor. Impaired. MDM Medical Decision Making Medical Record Reviewed: Yes Assessment/Plan 36-year-old female with history of schizoaffective disorder who presents to the emergency department under involuntary status initiated by [facility]UCER at [facility]. As per the report the patient presented to an appointment and was " manic, bizarre, paranoid. Speech rapid, pressured and circumstantial. Mother reported she has not been taking medications since she was discharged. Patient restless, easily agitated, responding to internal stimuli while in J pod. her only answers were " medical; attention, medical attention". Patient meets criteria for inpatient treatment for evaluation and to maintain safety. Orders Orders Psych Screen (01/22/17 13:59) Complete Blood Count With Diff (01/22/17 13:59) Comprehensive Metabolic Panel (01/22/17 13:59) Tylenol (Acetaminophen) (01/22/17 13:59) Urinalysis - C+S If Indicated (01/22/17 13:59) Drug Screen, Random Urine (01/22/17 14:01) Diet Regular Basic (01/22/17 Dinner) Ziprasidone Inj (Geodon Inj) (01/22/17 16:16) Diphenhydramine Inj (Benadryl Inj) (01/22/17 16:16) Ziprasidone Inj (Geodon Inj) (01/22/17 16:30) Diphenhydramine Inj (Benadryl Inj) (01/22/17 16:30) Results Vital Signs Date Time Temp Pulse Resp B/P (MAP) Pulse Ox O2 Delivery O2 Flow Rate FiO2 01/22/17 14:56 96.1 88 18 137/97 (110) 97 01/22/17 13:54 98.9 107 16 130/62 (84) 99 Laboratory Tests Test 01/22/17 14:05 White Blood Count 11.9 Red Blood Count 4.14 Hemoglobin 13.2 Hematocrit 38.2 Mean Corpuscular Volume 92.1 Mean Corpuscular Hemoglobin 31.8 Mean Corpuscular Hemoglobin Concent 34.5 Red Cell Distribution Width 13.5 Platelet Count 319 Mean Platelet Volume 7.5 Neutrophils (%) (Auto) 76.2 Lymphocytes (%) (Auto) 14.8 Monocytes (%) (Auto) 8.1 Eosinophils (%) (Auto) 0.4 Basophils (%) (Auto) 0.5 Neutrophils # (Auto) 9.1 Lymphocytes # (Auto) 1.8 Monocytes # (Auto) 1.0 Eosinophils # (Auto) 0.1 Basophils # (Auto) 0.1 CBC Comment DIFF FINAL Differential Comment Blood Urea Nitrogen 10 Creatinine 0.91 Random Glucose 108 Total Protein 7.7 Albumin 4.0 Calcium Level 8.9 Alkaline Phosphatase 52 Aspartate Amino Transf (AST/SGOT) 16 Alanine Aminotransferase (ALT/SGPT) 22 Total Bilirubin 0.2 Sodium Level 139 Potassium Level 3.8 Chloride Level 107 Carbon Dioxide Level 21.3 Anion Gap 11 Estimat Glomerular Filtration Rate 70 Acetaminophen Level LESS THAN 2.0 Diagnosis Primary Impression: Psychosis Additional Impression: Schizoaffective disorder Admitting Information Admitting Physician Requests: Admit Condition: Stable Problem Qualifiers Primary Impression: Psychosis Qualified Codes: F29 - Unspecified psychosis not due to a substance or known physiological condition Additional Impression: Schizoaffective disorder Qualified Codes: F25.0 - Schizoaffective disorder, bipolar type Daniela Cam Jan 22, 2017 17:02
[2017-01-22] MEDS ORDERED: MAGNESIUM HYDROXIDE SUSP 30 ML CUP PO PRN (17:15)
[2017-01-22] MEDS ORDERED: ALUMINUM/MAGNESIUM/SIMETH 30 ML CUP PO PRN (17:15)
[2017-01-22 17:49] LABS: BLOOD, URINE NEG (NEG); GLUCOSE,URINE NEG (NEG); KETONE, URINE NEG (NEG); NITRITE,URINE NEG (NEG); PH, URINE 6.5 (5.0-8.5); SQUAMOUS EPITHELIAL CELL URINE <1 /hpf (0-5); URINE COLOR COLORLESS (YELLW/STRAW)
[2017-01-22 17:53] LABS: COMMENT (UR) CULT NOT INDICATED; CULTURE IF INDICATED CULT NOT INDICATED
[2017-01-22] MEDS ORDERED: LORazepam 2 MG/ML VIAL ONE (18:09)
[2017-01-22] MEDS ORDERED: HALOPERIDOL LACTATE 5 MG/ML AMP ONE (18:10)
[2017-01-22 18:39] VITALS: BP 138/84; PULSE 105; RESP 20; TEMP 98.2; O2SAT 97
[2017-01-22] MEDS ORDERED: LORazepam 2 MG/ML VIAL IM STA (18:46)
[2017-01-22] MEDS ORDERED: HALOPERIDOL LACTATE 5 MG/ML AMP IM STA (18:46)
[2017-01-22] MEDS ORDERED: diphenhydrAMINE HCL 50 MG/ML VIAL IM STA (18:47)
--- NOTE | 2017-01-23 09:41 | HHI.HP ---
Provisional Diagnosis Admission Date Jan 22, 2017 at 17:05 [place] I. 1. Schizoaffective disorder, bipolar type, acute exacerbation [place] II. Deferred Certification of Person's Competence To Provide Express and Informed Consent I have personally examined Hannah Dubose , a person being served at [facility] on, Jan 23, 2017 09:41. Express and informed consent means consent voluntarily given in writing, by a competent person, after sufficient explanation and disclosure of the subject matter involved to enable the person to make a knowing and willful decision without any element of force, fraud, deceit, duress, or other form of constraint or coercion. This person is 18 years of age or older, is not now known to be incompetent to consent to treatment with a guardian advocate, and does not have a health care surrogate or proxy currently making medical treatment decisions. I have found this person to be one of the following: [] Competent to provide express and informed consent, as defined above, for voluntary admission to this facility and is competent to provide express and informed consent for treatment. He/she has the consistent capacity to make well reasoned, willful, and knowing decisions concerning his or her medical or mental health treatment. The person fully and consistently understands the purpose of the admission for examination/placement and is fully capable of personally exercising all rights [place] [x] Incompetent to provide express and informed consent to voluntary admission, and this is incompetent to provide express and informed consent to treatment. The person must be transferred to involuntary status and a petition for a guardian advocate filed with the Circuit Court. [] Refusing to provide express and informed consent to voluntary admission but is competent to provide express and informed consent for treatment. The person must be discharged or transferred to involuntary status. Form shall be completed within 24 hours of a person's arrival at the receiving facility and filed in the clinical record of each person: 1. Admitted on a voluntary basis 2. Permitted to provide express and informed consent to his/her own treatment 3. Allowed to transfer from involuntary to voluntary status 4. Prior to permitting a person to consent to his or her own treatment after having been previously found incompetent to consent to treatment. History of Present Illness Capacity: Lacks Capacity HPI Ms. Dubose is a 36-year-old female with a history of schizoaffective disorder who presents under a [place] act from [facility] alleging that the patient presented to the outpatient clinic in a manic and psychotic state. Patient's mother apparently accompanied the patient to the visit and provided collateral that the patient had not been taking her psychotropic medications. Reviewing the electronic medical record, I note the patient was recently discharged from the inpatient psychiatric unit here at [facility] on 01/16. Patient was apparently quite agitated in the ED and required an ETO. Patient seen and examined with counselor and a nurse. On my examination today, the patient presents with pressured speech. She is quite interpersonally intense. She appears frankly internally stimulated although she denies AVH. She is exceedingly discharge focused and is quite intrusive in this regard as I am endeavoring to examine other patients. When I ask how she has come to be in the hospital, she tells me, "it turns out I need to get my meds from somewhere else than [facility]." She says that she walked into the clinic to get a med refill and was essentially given the run around. She denies becoming agitated at [facility] and insists that she has been med compliant with her Zyprexa. When I ask about her agitated behavior in the ED, she minimizes this and says that she was just upset because, "I wanted dinner." She does not believe she has a mental illness and tends to minimize psychiatric symptoms generally. She denies suicidal or homicidal ideation but seems unreliable contract for safety. Patient denies issues with mood, and affect seems blunted, tending towards flat. Remainder of the psychiatric ROS is negative. Past psychiatric history: Patient has a chart history of schizoaffective disorder. She gets her outpatient psychiatric care through [facility]. Her most recent psychiatric admission was here at [facility], having been discharged a week ago. She denies any history of suicide attempts. She denies ever having been on a long-acting injectable in the past. Review of hospital MAR suggests prior trials of Latuda, Zyprexa, Geodon, Risperdal PO as well as VPA, among other agents. Review of Systems ROS Limitations: Psychotic, Poor Historian Except as stated in HPI: all other systems reviewed are Neg Past Psych History Psychological trauma history Patient denies a history of abuse. No other reported trauma history. Violence risk - others (6 mos) Indeterminate. Patient was quite agitated in the ED and required an ETO medication. She is psychotic and unpredictable. Violence risk - self (6 mos) Indeterminate. Patient is psychotic and unpredictable. Substance Abuse History Drugs/Alcohol past 12 months Patient denies any abuse of drugs or alcohol. Past Family Social History Coded Allergies: No Known Allergies (Verified , 10/27/16) Past Medical History See electronic medical record Active Scripts Olanzapine (Olanzapine) 10 Mg Tab, 10 MG PO DAILY for health for 15 Days, #15 TAB Prov:Fito Yin MD 01/15/17 Olanzapine (Olanzapine) 15 Mg Tab, 15 MG PO HS for health for 15 Days, #15 TAB Prov:Fito Yin MD 01/15/17 Current Medications Medications (Trade) Dose Ordered Sig/Emmy Route Start Time Stop Time Status Last Admin (Tylenol) 650 mg Q4H PRN PO 01/22/17 17:15 (Milk Of Magnesia Liq) 30 ml DAILY PRN PO 01/22/17 17:15 (Mag-Al Plus Susp Liq) 30 ml Q6H PRN PO 01/22/17 17:15 Family History Patient denies any family history of mental illness Social History Patient reports that she has been residing with her mother. She has her GED and collects disability. She is with 3 daughters she tells me. She has limited contact with her children. She denies any legal issues initially but then says that she has a court date in February or perhaps March for resisting arrest without violence. She denies any access to guns or firearms. She denies any particular episcopal or spiritual beliefs. Patient's Strengths (min. 2) In a monitored setting. Verbally fluent. Physical Exam Physical exam completed by ED provider. On my examination today, the patient appears to be in no acute physical distress. No motor abnormalities noted. Labs and vitals reviewed: Vital Signs Vital Signs Date Time Temp Pulse Resp B/P (MAP) Pulse Ox O2 Delivery O2 Flow Rate FiO2 01/22/17 18:39 98.2 105 20 138/84 (102) 97 Lab Results Item Value Date Time White Blood Count 11.9 TH/MM3 H 01/22/17 1405 Hemoglobin 13.2 GM/DL 01/22/17 1405 Platelet Count 319 TH/MM3 01/22/17 1405 Sodium Level 139 MEQ/L 01/22/17 1405 Potassium Level 3.8 MEQ/L 01/22/17 1405 Chloride Level 107 MEQ/L 01/22/17 1405 Carbon Dioxide Level 21.3 MEQ/L 01/22/17 1405 Blood Urea Nitrogen 10 MG/DL 01/22/17 1405 Creatinine 0.91 MG/DL 01/22/17 1405 Estimat Glomerular Filtration Rate 70 ML/MIN L 01/22/17 1405 Aspartate Amino Transf (AST/SGOT) 16 U/L 01/22/17 1405 Alanine Aminotransferase (ALT/SGPT) 22 U/L 01/22/17 1405 Alkaline Phosphatase 52 U/L 01/22/17 1405 Urine Opiates Screen NEG 01/22/17 1712 Urine Barbiturates Screen NEG 01/22/17 171 Urine Amphetamines Screen NEG 01/22/17 171 Urine Benzodiazepines Screen NEG 01/22/17 171 Urine Cocaine Screen NEG 01/22/17 171 Urine Cannabinoids Screen NEG 01/22/171711 Alcohol level was not obtained. Urinalysis bland. EKG obtained on 01/05 revealed sinus bradycardia with a ventricular rate of 59 and a QTc of 434ms. Mental Status Examination No motor abnormalities noted Appearance In hospital gown. Somewhat disheveled but maintaining basic hygiene. Interpersonally intense. Speech: Pressured Orientation: Person, Place (at least) Memory: Impaired (describe) (somewhat confabulated) Thought Process: Thought Blocking (perhaps some subtle thought blocking), Other (perseverative on discharge) Thought Content: Other (minimizing circumstances her presentation here. Possibly some subtle paranoia.) Language Unremarkable Fund of Knowledge Average Hallucination Type: None (denies AVH but appears internally preoccupied) Attention and Concentration: Easily Distracted Suicidal Ideation: No (unreliable to contract for safety) Previous Suicide Attempts: No Homicidal Ideation: No (unreliable to contract for safety) Previous Homicide Attempts: No Insight: Poor Judgment: Poor Affect if Inappropriate: Blunt (tending towards flat) Mood: Other (denies issues with mood) Motor Activity: Normal gait Assessment & Plan Problem List: (1) Schizoaffective disorder ICD Codes: F25.9 - Schizoaffective disorder, unspecified Status: Acute Assessment & Plan 36-year-old female with psychiatric history as detailed above who presents under a [place] act. Patient was just recently discharged from the inpatient psychiatric unit here. Medication nonadherence is alleged in the [place] act, although the patient herself denies this. Currently decompensated psychotic state would not be inconsistent with medication nonadherence over the period of her discharge. I think initiating an agent with a corresponding long- acting injectable that is readily available and easily administered in the clinic, unlike Zyprexa, makes sense in this case. Patient requires psychiatric hospitalization for safety, observation and stabilization. Admit inpatient. Involuntary status. I've completed first opinion. Consult for second opinion. Request healthcare surrogate and guardian advocate. Discontinue Zyprexa. Initiate Risperdal M-tabs 1 mg twice daily with plans to titrate to effect to target psychosis. To consider long-acting injectable such as Risperdal Consta or Invega Sustenna. Ativan as needed for anxiety, Geodon as needed for severe agitation, Cogentin as needed for EPS, Ambien as needed for sleep. Follow up BMP, lipid panel and HgbA1c ordered by [employer] [employer] [facility]. Also check CBC to follow up mild leukocytosis, although patient has no signs or symptoms of infection. Check a stat beta hCG. Vitals every shift. Counselor to see and obtain collateral. Disposition planning. Estimated length of stay: 1-2 weeks. Discharge Planning Pending psychiatric stabilization Request HC Surrog/Guard Advoc?: Yes Problem Qualifiers (1) Schizoaffective disorder: Qualified Codes: F25.0 - Schizoaffective disorder, bipolar type Jon Florence MD Jan 23, 2017 09:41
[2017-01-23] MEDS ORDERED: LORazepam 2 MG/ML VIAL IM PRN (12:30)
[2017-01-23] MEDS: risperiDONE ODT 1 MG TAB PO SCH ×2 (12:30→20:50)
[2017-01-23] MEDS ORDERED: BENZTROPINE MESYLATE 2 MG/2 ML VIAL IM PRN (12:30)
[2017-01-23] MEDS ORDERED: ZIPRASIDONE MESYLATE 20 MG VIAL IM PRN (12:30)
[2017-01-23] MEDS: ACETAMINOPHEN 325 MG TAB PO PRN ×2 (18:49→20:50)
[2017-01-23 18:59] LABS: AUTOMATED NEUTROPHIL # 4.7 TH/MM3 (1.8-7.7); BASOPHIL % 0.6 % (0.0-2.0); EOSINOPHIL # 0.3 TH/MM3 (0-0.4); EOSINOPHIL % 3.3 % (0.0-4.0); HEMATOCRIT 39.1 % (35.0-46.0); HEMO FLAGS DIFF FINAL; LYMPH % 30.3 % (9.0-44.0); LYMPHOCYTE # 2.5 TH/MM3 (1.0-4.8); MEAN CELL VOLUME 92.9 FL (80.0-100.0); MEAN CORPUSCULAR HEMOGLOBIN 31.5 PG (27.0-34.0); MEAN CORPUSCULAR HGB CONC 33.9 % (32.0-36.0); MONO % 8.3 % (0.0-8.0); NEUT % 57.5 % (16.0-70.0); PLATELET COUNT 297 TH/MM3 (150-450); RED CELL DISTRIBUTION WIDTH 13.5 % (11.6-17.2); WHITE BLOOD COUNT 8.2 TH/MM3 (4.0-11.0)
[2017-01-23 19:15] LABS: ANION GAP 7 MEQ/L (5-15); BICARBONATE 28.3 MEQ/L (21.0-32.0); BLOOD UREA NITROGEN 17 MG/DL (7-18); CHLORIDE 104 MEQ/L (98-107); GLOMERULAR FILTRATION RATE 83 ML/MIN (>89); POTASSIUM 3.4 MEQ/L (3.5-5.1); SODIUM (NA) 139 MEQ/L (136-145)
[2017-01-23 19:20] LABS: BETA HCG QUANT LESS THAN 1 MIU/ML (0-5)
[2017-01-24 05:39] VITALS: BP 109/79; PULSE 82; RESP 18; TEMP 98.2; O2SAT 97
[2017-01-24] MEDS: risperiDONE ODT 1 MG TAB PO SCH ×2 (08:43→20:52)
[2017-01-24] MEDS: ACETAMINOPHEN 325 MG TAB PO PRN ×2 (11:04→20:52)
[2017-01-24] MEDS: LORazepam 1 MG TAB PO PRN (11:08)
[2017-01-24] MEDS: BENZTROPINE MESYLATE 1 MG TAB PO PRN (11:08)
[2017-01-24 13:17] LABS: HEMOGLOBIN A1b 0.9 %; HEMOGLOBIN Ao 85.8 %; HEMOGLOBIN F 0.9 %; HEMOGLOBIN LA1C 1.8 %; HEMOGLOBIN P3 3.6 %
[2017-01-24 14:14] LABS: HDL CHOLESTEROL 53.8 MG/DL (40.0-60.0)
[2017-01-24 17:52] VITALS: BP 105/76; PULSE 93; RESP 19; TEMP 98.4; O2SAT 97
--- NOTE | 2017-01-24 18:34 | HHI.PYPN ---
Subjective Remarks This is a request for second opinion. Admission note was reviewed and I agree with the contents, case was discussed with nursing, patient was interviewed. Patient continues to minimize her manic behavior before admission. Insight remains quite poor. She does her best to keep it together during the interview. Speech is less pressured than per nursing she is less intrusive today. Remains blunted and seclusive to self. Denies psychotic symptoms. Objective Alert: Yes [place]: Person, Place Mood: Oppositional Affect: Blunted Memory Intact: Comment (unable to test) Hallucinations: Other (Appears internally stimulated) Delusions: Yes Delusion Type: Paranoid (as per documentation provided by [facility]) Suicidal: Ideation (denies) Homicidal: Ideation (denies) Insight/Judgment Poor Labs Test 01/24/17 12:57 Triglycerides Level 105 MG/DL Cholesterol Level 188 MG/DL LDL Cholesterol 113 MG/DL HDL Cholesterol 53.8 MG/DL Cholesterol/HDL Ratio 3.49 RATIO Vitals/IOs Vital Signs Date Time Temp Pulse Resp B/P (MAP) Pulse Ox O2 Delivery O2 Flow Rate FiO2 01/24/17 17:52 98.4 93 19 105/76 (86) 97 Assessment & Plan Problem List: (1) Schizoaffective disorder ICD Codes: F25.9 - Schizoaffective disorder, unspecified Status: Acute Assessment & Plan I agree with the first opinion to continue petition. Criteria include acute psychosis and mood lability Justification for Cont. Inpt. Patient would decompensate in a less restrictive setting Request HC Surrog/Guard Advoc?: Yes Problem Qualifiers (1) Schizoaffective disorder: Qualified Codes: F25.0 - Schizoaffective disorder, bipolar type David Degroot DO Jan 24, 2017 18:34
[2017-01-24] MEDS: NICOTINE 14 MG/24 HR PATCH T-DERMAL SCH (18:45)
[2017-01-24] MEDS: ZOLPIDEM TARTRATE 5 MG TAB PO PRN (20:52)
[2017-01-24] MEDS: REMOVE OLD PATCH T-DERMAL SCH (20:53)
[2017-01-25] MEDS: risperiDONE ODT 1 MG TAB PO SCH ×2 (10:27→20:20)
[2017-01-25] MEDS: NICOTINE 14 MG/24 HR PATCH T-DERMAL SCH (10:27)
[2017-01-25] MEDS: BENZTROPINE MESYLATE 1 MG TAB PO PRN (12:46)
[2017-01-25] MEDS: LORazepam 1 MG TAB PO PRN (13:29)
[2017-01-25 17:07] VITALS: BP 109/76; PULSE 80; RESP 18; TEMP 97.8; O2SAT 98
--- NOTE | 2017-01-25 18:33 | HHI.PYPN ---
Subjective Remarks Patient was seen and case discussed with nursing. Patient is pleasant and cooperative with exam. Insight remains poor concerning her mental health and reasons for admission. However nursing and myself and not found any evidence for manic behavior at this time. She is not pressured, irritable and does not have excess energy. She notices a benefit from the Risperdal. Eating and sleeping well. Behaving well on the unit Objective Alert: Yes [place]: Person, Place Mood: Calm Affect: Restricted Memory Intact: Comment (unable to test) Hallucinations: Other (Appears internally stimulated) Delusions: Yes Delusion Type: Paranoid (as per documentation provided by [facility]) Suicidal: Ideation (denies) Homicidal: Ideation (denies) Insight/Judgment Poor Vitals/IOs Vital Signs Date Time Temp Pulse Resp B/P (MAP) Pulse Ox O2 Delivery O2 Flow Rate FiO2 01/25/17 17:07 97.8 80 18 109/76 (87) 98 Assessment & Plan Problem List: (1) Schizoaffective disorder ICD Codes: F25.9 - Schizoaffective disorder, unspecified Status: Acute Assessment & Plan Continue current treatment plan Justification for Cont. Inpt. Patient will decompensate in a less restrictive setting Request HC Surrog/Guard Advoc?: Yes Problem Qualifiers (1) Schizoaffective disorder: Qualified Codes: F25.0 - Schizoaffective disorder, bipolar type David Degroot DO Jan 25, 2017 18:33
[2017-01-25] MEDS: REMOVE OLD PATCH T-DERMAL SCH (20:20)
[2017-01-25] MEDS: ZOLPIDEM TARTRATE 5 MG TAB PO PRN (20:20)
[2017-01-26 06:02] VITALS: BP 95/58; PULSE 59; RESP 18; TEMP 97.6; O2SAT 97
--- NOTE | 2017-01-26 08:37 | HHI.PYPN ---
Subjective Remarks Patient seen and examined with nurse. Chart reviewed. Case discussed with nursing staff. On my examination today, the patient feels that the Risperdal agrees with her. She feels that her head is "clearer" than at admission. We discuss her options regarding possible long-acting injectables, and she is agreeable to initiating such an agent today. Denies any AVH. No SI or HI. Denies side effects from medications. No physical complaints. Review of Systems ROS Limitations: Poor Historian Except as stated in HPI: all other systems reviewed are Neg Objective Alert: Yes [place]: Person, Place Mood: Calm Affect: Blunted Memory Intact: Comment (Not formally assessed) Hallucinations: Other (Denies AVH) Delusions: No Delusion Type: Other (No delusions) Suicidal: Ideation (No SI) Homicidal: Ideation (No HI) Insight/Judgment Poor Remarks No motoric abnormalities noted. No hand tremor, no dystonia, no dyskinesia noted. Thought process seems more linear today. Grooming and hygiene fair. Labs Labs reviewed. Hypokalemia noted. Vitals/IOs Vital Signs Date Time Temp Pulse Resp B/P (MAP) Pulse Ox O2 Delivery O2 Flow Rate FiO2 01/26/17 06:02 97.6 59 18 95/58 (70) 97 Assessment & Plan Problem List: (1) Schizoaffective disorder ICD Codes: F25.9 - Schizoaffective disorder, unspecified Status: Acute Assessment & Plan Patient tolerating Risperdal well and seems to be responding well to this agent. Initiate Invega Sustenna 234 mg today. Plan for booster dose later in the week. Plan for rapid discontinuation of oral Risperdal as extended oral supplementation is not required with Invega Sustenna. Check a potassium and magnesium level. Continue to monitor on the inpatient unit. Continue other medications care as ordered. Justification for Cont. Inpt. Med changes. Risk for decompensation in less restrictive environment. Discharge Planning Anticipate discharge middle to end of this week. Request HC Surrog/Guard Advoc?: Yes Problem Qualifiers (1) Schizoaffective disorder: Qualified Codes: F25.0 - Schizoaffective disorder, bipolar type Jon Florence MD Jan 26, 2017 08:37
[2017-01-26] MEDS: risperiDONE ODT 1 MG TAB PO SCH ×2 (09:10→21:00)
[2017-01-26] MEDS: NICOTINE 14 MG/24 HR PATCH T-DERMAL SCH (09:10)
[2017-01-26] MEDS: LORazepam 1 MG TAB PO PRN ×2 (11:43→21:00)
[2017-01-26] MEDS ORDERED: PALIPERIDONE PALMITATE 234 MG/1.5 ML SYRINGE IM ONE (15:45)
[2017-01-26] MEDS: ZOLPIDEM TARTRATE 5 MG TAB PO PRN (21:00)
[2017-01-26] MEDS: REMOVE OLD PATCH T-DERMAL SCH (21:00)
[2017-01-27] MEDS: risperiDONE ODT 1 MG TAB PO SCH ×2 (09:00→22:08)
[2017-01-27] MEDS: NICOTINE 14 MG/24 HR PATCH T-DERMAL SCH (09:00)
[2017-01-27 09:56] LABS: POTASSIUM 3.7 MEQ/L (3.5-5.1)
[2017-01-27 09:57] LABS: MAGNESIUM 1.9 MG/DL (1.5-2.5)
--- NOTE | 2017-01-27 12:26 | HHI.PYPN ---
Subjective Remarks Patient seen and examined with counselor and nurse. Chart reviewed. Case discussed in treatment team. On my examination today, the patient reports that she is tolerating Invega Sustenna well without side effects. Behavior appropriate during interview. No SI, HI or AVH. She feels subjectively like she is improving with medications. No physical complaints. Review of Systems Except as stated in HPI: all other systems reviewed are Neg Objective Alert: Yes [place]: Person, Place Mood: Calm Affect: Appropriate Memory Intact: Comment (Not formally assessed) Hallucinations: Other (no AVH) Delusions: No Delusion Type: Other (No delusions) Suicidal: Ideation (No SI) Homicidal: Ideation (No HI) Insight/Judgment Poor Remarks No motor abnormalities noted. Thought process fairly linear. Grooming and hygiene fair. Labs Test 01/27/17 07:52 Potassium Level 3.7 MEQ/L Magnesium Level 1.9 MG/DL Labs reviewed. Potassium and magnesium level within normal limits. Vitals/IOs Vital Signs Date Time Temp Pulse Resp B/P (MAP) Pulse Ox O2 Delivery O2 Flow Rate FiO2 01/26/17 06:02 97.6 59 18 95/58 (70) 97 Assessment & Plan Problem List: (1) Schizoaffective disorder ICD Codes: F25.9 - Schizoaffective disorder, unspecified Status: Acute Assessment & Plan Continue oral Risperdal supplementing Invega Sustenna. Plan for booster dose of Invega Sustenna later in the week. Transfer to lower acuity 2600 unit as the patient has been no behavioral problem and seems to be improving with medications. Continue other medications and care as ordered. Patient may sign voluntary. Justification for Cont. Inpt. Risk for decompensation Discharge Planning I have encouraged the patient to remain on the unit until the booster dose of Invega Sustenna can be administered at the end of the week. Request HC Surrog/Guard Advoc?: Yes Problem Qualifiers (1) Schizoaffective disorder: Qualified Codes: F25.0 - Schizoaffective disorder, bipolar type Jon Florence MD Jan 27, 2017 12:26
[2017-01-27 17:40] VITALS: BP 113/64; PULSE 92; RESP 18; TEMP 98.4; O2SAT 99
[2017-01-27] MEDS: REMOVE OLD PATCH T-DERMAL SCH (21:00)
[2017-01-28] MEDS: ZOLPIDEM TARTRATE 5 MG TAB PO PRN (01:59)
[2017-01-28] MEDS: LORazepam 1 MG TAB PO PRN (06:44)
[2017-01-28] MEDS: NICOTINE 14 MG/24 HR PATCH T-DERMAL SCH (09:00)
[2017-01-28] MEDS: risperiDONE ODT 1 MG TAB PO SCH ×2 (09:00→21:00)
[2017-01-28] MEDS: ACETAMINOPHEN 325 MG TAB PO PRN (15:13)
--- NOTE | 2017-01-28 15:51 | HHI.PYPN ---
Subjective Remarks patient seen and examined. Chart reviewed. Case discussed with nursing staff. No behavioral issues overnight. On my examination today, the patient is in good spirits. She would like to be discharged home to her mother. Unfortunately, the counselor has reached out to the patient's mother and learned that the patient may not return there because the mother would be evicted from the home if she did. I have discussed this with the patient, and she is willing to remain on the unit until alternative placement can be arranged. Denies SI or HI. Denies AVH. Denies side effects from medications. No physical complaints. Review of Systems Except as stated in HPI: all other systems reviewed are Neg Objective Alert: Yes [place]: Person, Place Mood: Calm Affect: Appropriate Memory Intact: Comment (not assessed) Hallucinations: Other (denies AVH) Delusions: No Delusion Type: Other (no delusions elicited) Suicidal: Ideation (denies SI) Homicidal: Ideation (denies HI) Insight/Judgment Poor Remarks No motoric abnormalities noted. Labs Labs reviewed. Vitals/IOs Vital Signs Date Time Temp Pulse Resp B/P (MAP) Pulse Ox O2 Delivery O2 Flow Rate FiO2 01/27/17 17:40 98.4 92 18 113/64 (80) 99 Assessment & Plan Problem List: (1) Schizoaffective disorder ICD Codes: F25.9 - Schizoaffective disorder, unspecified Status: Acute Assessment & Plan Continue current psychotropics as ordered. Plan for booster dose of Invega Sustenna later this week. Counselor to begin working on placement options for the patient. Continue other medications and care as ordered. Justification for Cont. Inpt. Risk for decompensation in less restrictive environment. Discharge Planning Placement. Request HC Surrog/Guard Advoc?: Yes Problem Qualifiers (1) Schizoaffective disorder: Qualified Codes: F25.0 - Schizoaffective disorder, bipolar type Jon Florence MD Jan 28, 2017 15:51
[2017-01-28 18:50] VITALS: BP 93/54; PULSE 73; RESP 17; TEMP 98.5; O2SAT 98
[2017-01-28] MEDS: REMOVE OLD PATCH T-DERMAL SCH (21:00)
[2017-01-29 05:59] VITALS: BP 100/58; PULSE 67; RESP 17; TEMP 97.9
[2017-01-29] MEDS: risperiDONE ODT 1 MG TAB PO SCH (09:00)
[2017-01-29] MEDS: NICOTINE 14 MG/24 HR PATCH T-DERMAL SCH (09:54)
[2017-01-29] MEDS ORDERED: PALI156P IM (12:24)
--- NOTE | 2017-01-29 12:24 | HHI.DS ---
Psychiatry Discharge Summary Inpatient Psychiatric care?: Yes Advance Directive: No Reason Not Provided: n/a Mental Health AdvanceDirective: No Health Care Proxy: No Admission Admission Date Jan 22, 2017 at 17:05 Admission Diagnosis: (1) Schizoaffective disorder ICD Code: F25.9 - Schizoaffective disorder, unspecified Brief History Ms. Dubose is a 36-year-old female with a history of schizoaffective disorder who presents under a [place] act from [facility] alleging that the patient presented to the outpatient clinic in a manic and psychotic state. Patient's mother apparently accompanied the patient to the visit and provided collateral that the patient had not been taking her psychotropic medications. Reviewing the electronic medical record, I note the patient was recently discharged from the inpatient psychiatric unit here at [place] on 01/16. Patient was apparently quite agitated in the ED and required an ETO. Patient seen and examined with counselor and a nurse. On my examination today, the patient presents with pressured speech. She is quite interpersonally intense. She appears frankly internally stimulated although she denies AVH. She is exceedingly discharge focused and is quite intrusive in this regard as I am endeavoring to examine other patients. When I ask how she has come to be in the hospital, she tells me, "it turns out I need to get my meds from somewhere else than [facility]." She says that she walked into the clinic to get a med refill and was essentially given the run around. She denies becoming agitated at [facility] and insists that she has been med compliant with her Zyprexa. When I ask about her agitated behavior in the ED, she minimizes this and says that she was just upset because, "I wanted dinner." She does not believe she has a mental illness and tends to minimize psychiatric symptoms generally. She denies suicidal or homicidal ideation but seems unreliable contract for safety. Patient denies issues with mood, and affect seems blunted, tending towards flat. Remainder of the psychiatric ROS is negative. Past psychiatric history: Patient has a chart history of schizoaffective disorder. She gets her outpatient psychiatric care through [facility]. Her most recent psychiatric admission was here at [place], having been discharged a week ago. She denies any history of suicide attempts. She denies ever having been on a long-acting injectable in the past. Review of hospital MAR suggests prior trials of Latuda, Zyprexa, Geodon, Risperdal PO as well as VPA, among other agents. Tobacco Use In Past 30 Days: 5 or More Cigarettes/Day Alcohol Use: Never Hospital Course Patient was admitted to a locked, inpatient psychiatric unit. Appropriate precautions were in place throughout patient's hospital stay. Patient was seen and examined daily on the unit by psychiatry and also visited by counselor. Psychotropic medications were adjusted. Patient was started on oral Risperdal and responded well to this agent with good tolerability. She was transitioned to long-acting injectable Invega Sustenna and received both initial injections of this medication prior to discharge from the inpatient unit. There was no evidence of any suicidality or homicidality on the inpatient unit. Patient's psychiatric symptoms improved during the course of her hospital stay. Counselor has been in contact with patient's mother who now wishes to have the patient return to her care today with plans to meet with apartment complex representatives tomorrow morning in hopes that they will allow patient to return. On the day of discharge: Patient seen and examined with nurse. Chart reviewed. Case discussed with nursing staff. No behavioral issues noted overnight. On my examination this morning, the patient is requesting discharge from the unit today. She wishes to pursue the plan outlined by her mother. She denies any suicidal or homicidal ideation, intent or plan on direct questioning and contracts for safety. No depressive or hypomanic/manic symptoms elicited. She denies any audiovisual hallucinations, and I can elicit no delusional material. She denies side effects from medications and offers no physical complaints. She is agreeable to following up with [facility]. 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 The patient does not meet criteria for involuntary psychiatric hospitalization. I have recommended that she remain voluntarily on the unit to allow us to arrange for more certain and stable placement, such as at an [facility], but she wishes to return home to her mother's care today. Patient is to be discharged with psychiatric follow-up as arranged by counselor. Patient is also to follow-up with primary care. I counseled patient regarding warning signs for need to return to the psychiatric emergency room as part of the general safety plan. Since that patient has received both initial doses of Invega Sustenna, she does not require oral Risperdal supplementation going forward. I have educated the patient on the need to get follow-up injection of Invega Sustenna as ordered, with further refills of this medication to be prescribed by her outpatient provider. Results Blood Pressure 100 / 58 Vital Signs Date Time Temp Pulse Resp B/P (MAP) Pulse Ox O2 Delivery O2 Flow Rate FiO2 01/29/17 05:59 97.9 67 17 100/58 (72) 01/28/17 18:50 98 Laboratory Tests Test 01/27/17 07:52 Laboratory Results Test 01/23/17 18:26 01/24/17 12:57 Hemoglobin A1c 5.5 % (4.3-6.0) Cholesterol Level 188 MG/DL (120-200) HDL Cholesterol 53.8 MG/DL (40.0-60.0) LDL Cholesterol 113 MG/DL (0-99) Triglycerides Level 105 MG/DL (42-150) Summary of Procedures None done Imaging None done Pending results at discharge: No Medications # of Antipsychotic meds at D/C: 1 Approp Antipsych med options 1 - Minimum of three failed multiple trials of monotherapy. 2 - Documented plan to taper to monotherapy due to previous use of multiple meds OR cross-taper in progress at D/C. 3 - Documentation of augmentation of Clozapine. 4 - Justification other than those listed in allowable values 1-3, document here : Discharge Discharge Date: Jan 29, 2017 Discharge Diagnosis: (1) Schizoaffective disorder Diagnosis: Principal (stabilized) ICD Code: F25.9 - Schizoaffective disorder, unspecified Status: Acute Mental Status Exam at Disch Patient is in hospital attire. Patient is well groomed. Patient is awake and alert and oriented person and hospital at least. No evidence of delirium. No motor abnormalities appreciated. Speech is within normal limits for rate, tone , volume. Memory intact on clinical exam. Mood is good. Affect is fairly full and reactive. Thought process linear. No delusions elicited. Denies audiovisual hallucinations. Denies suicidal or homicidal ideation, intent, or plan and contracts for safety. Insight and judgment seem fair to poor at best. Pt Condition on Discharge: Stable Discharge Disposition: Discharge Home Discharge Instructions Diet Instructions: As Tolerated, No Restrictions Activities you can perform: Weight Bearing as [place] Scheduled Appointment: as per counselor's notes New Medications: Paliperidone Palmitate Inj (Invega Sustenna Inj) 156 Mg/Ml Inj 156 MG IM Q28D for Mental Health, #1 VIAL 0 Refills This dose of Invega Sustenna is due on 02/26/2017. Discontinued Medications: Olanzapine (Olanzapine) 15 Mg Tab 15 MG PO HS for health for 15 Days, #15 TAB Olanzapine (Olanzapine) 10 Mg Tab 10 MG PO DAILY for health for 15 Days, #15 TAB Discharge Time <= 30 minutes Discharge/Advance Care Plan Health Problems: (1) Schizoaffective disorder Goals to promote your health * To prevent worsening of your condition and complications * To maintain your health at the optimal level Directions to meet your goals Take your medications as prescribed Follow your dietary instruction Follow activity as directed Keep your appointments as scheduled Take your immunizations and boosters as scheduled If your symptoms worsen call your PCP, if no PCP go to Urgent Care Center or Emergency Room For 01/12 questions related to your inpatient stay or results of tests pending at discharge, please contact Dr. Jon Florence at Smoking is Dangerous to Your Health. Avoid second hand smoking Problem Qualifiers (1) Schizoaffective disorder: Qualified Codes: F25.0 - Schizoaffective disorder, bipolar type Jon Florence MD Jan 29, 2017 12:24
[2017-01-29] MEDS ORDERED: PALIPERIDONE PALMITATE 156 MG/ML SYRINGE IM ONE (12:30)
== END 2017-01-29 13:45 | disposition home or self-care (01) | DRG 885 ==
LOC: NEPJ 13:44 → NEDA 17:05 → H270 17:43 → H260 01-27 11:00
PROVIDERS: ADMIT Psychiatry & Neurology Psychiatry; ATTEND Psychiatry & Neurology Psychiatry
DX: F25.0 Schizoaffective disorder, bipolar type (principal); Z91.14 Patient's other noncompliance with medication regimen; F17.210 Nicotine dependence, cigarettes, uncomplicated
CPT/HCPCS: 80048; 80053; 80061; 80307; 81001; 83036; 83735; 84132; 84702; 85025; 96372; J1200; J1630; J2060; J2426; J3486